=== PATIENT | female | born 1990 | race African-American/Black ===

== ENCOUNTER 2016-07-02 08:53 | Emergency (ER) | payer OTHER ==
--- NOTE | 2016-07-02 09:33 | ED ---
URI HPI - General Chief Complaint: Upper Respiratory Infection Stated Complaint: congestion Time Seen by Provider: 07/02/16 09:19 Source: patient, RN notes reviewed Mode of arrival: ambulatory Limitations: no limitations - History of Present Illness Initial Comments: 25-year-old female presents to the emergency department with a chief complaint of cough cold runny nose like symptoms. Patient states that she has had this for the past week or so. Patient states she has produced some yellow green- like sputum. Patient does admit to a history of ALLERGIES. Patient states she was concerned due to her continued symptoms so she thought that she should be evaluated. Patient denies any recent fever, chills, shortness of breath, chest pain, back pain, abdominal pain, nausea vomiting, numbness or tingling, dysuria or hematuria, constipation or diarrhea, headaches or visual changes, or any other current symptoms. - Related Data Previous Rx's Medication Instructions Recorded Cetirizine HCl [Zyrtec] 10 mg PO DAILY #30 tab 07/02/16 Allergies Allergy/AdvReac Type Severity Reaction Status Date / Time No Known Allergies Allergy Verified 07/02/16 09:15 Review of Systems ROS Statement: Those systems with pertinent positive or pertinent negative responses have been documented in the HPI. ROS Other: All systems not noted in ROS Statement are negative. Past Medical History Past Medical History: Asthma Additional Past Medical History / Comment(s): frequent UTI History of Any Multi-Drug Resistant Organisms: None Reported Additional Past Surgical History / Comment(s): breat reduction Past Psychological History: Anxiety Smoking Status: Former smoker Past Alcohol Use History: Occasional Past Drug Use History: None Reported General Exam - General Exam Comments Initial Comments: General exam: Alert, active, comfortable in no apparent distress Head: Normocephalic Eyes: Normal reaction of pupils, equal size, normal range of extraocular motion Ears: normal external ear canals Nose: clear with pink turbinates Throat: no erythema or exudates with normal sized tonsils Neck: no masses, no nuchal rigidity Chest: no chest wall deformity Lungs: equal air entry with no crackles or wheeze CVS: S1 and S2 normal with no audible mumurs, regular rhythm Spine: no scoliosis or deformity Skin: no rashes Neurological: No focal deficits, tone is normal in all 4 extremities Limitations: no limitations Course Vital Signs 07/02/16 07/02/16 09:02 10:48 Temperature 99.3 F 99 F Pulse Rate 62 57 L Respiratory 17 16 Rate Blood Pressure 108/62 115/61 O2 Sat by Pulse 99 99 Oximetry Medical Decision Making - Medical Decision Making 25-year-old female presents for cough cold like symptoms. At this time the x- ray shows no pneumonia. This time we did discuss x-ray results were discussed. Zyrtec due to the fact that her symptoms seem to be ALLERGY related. Discussed return parameters and follow-up. Patient states she understood all questions were answered. She will be discharged. - Lab Data Lab Results 07/02/16 Range/Units 09:10 Urine HCG, Qual Not Detected (Not Detectd) - Radiology Data Radiology results: report reviewed, image reviewed Disposition Clinical Impression: Cough, Allergic cough Disposition: HOME SELF-CARE Condition: Stable Instructions: Allergies (ED) Additional Instructions: Please use medication as discussed. Please follow up with family doctor if symptoms have not improved over the next two days. Please return to the emergency room if your symptoms increase or worsen or for any other concerns. Prescriptions: Cetirizine HCl [Zyrtec] 10 mg PO DAILY #30 tab Referrals: Catalina Haji MD [STAFF PHYSICIAN] - 1-2 days Time of Disposition: 11:00
[2016-07-02 10:49] VITALS: RESP 16; TEMP 99
--- NOTE | 2016-07-02 10:55 | XR ---
EXAMINATION TYPE: XR chest 2V DATE OF EXAM: 07/02/2016 10:32 AM COMPARISON: NONE HISTORY: Cough and congestion TECHNIQUE: Frontal and lateral views of the chest are obtained. FINDINGS: There is no focal air space opacity, pleural effusion, or pneumothorax seen. The cardiac silhouette size is within normal limits. There is a thoracic lumbar scoliosis. Indeterminate calcifi c densities in the right upper quadrant. The osseous structures are intact. IMPRESSION: No acute cardiopulmonary process. Additional findings above.
[2016-07-02 12:04] VITALS: BP 112/64; PULSE 67
== END 2016-07-02 12:16 | disposition home or self-care (01) ==
LOC: EC 08:53
DX: R05 Cough (principal); R09.89 Other specified symptoms and signs involving the circulatory and respiratory systems; Z87.891 Personal history of nicotine dependence
CPT/HCPCS: 71020; 81025; 99283

== ENCOUNTER 2017-04-02 08:46 | Emergency (ER) | payer OTHER ==
[2017-04-02 10:01] LABS: Basophils # (A) 0.1 k/uL (0-0.2); Basophils % (A) 1 %; Eosinophils # (A) 0.2 k/uL (0-0.7); Eosinophils % (A) 2 %; HCT 43.7 % (34.0-46.0); HGB 14.6 gm/dL (11.4-16.0); Lymphocytes # (A) 1.8 k/uL (1.0-4.8); Lymphocytes % (A) 29 %; MCH 30.6 pg (25.0-35.0); MCHC 33.4 g/dL (31.0-37.0); MCV 91.7 fL (80.0-100.0); Mean Platelet Volume 7.9; Monocytes # (A) 0.4 k/uL (0-1.0); Monocytes % (A) 6 %; Neutrophils # (A) 3.8 k/uL (1.3-7.7); Neutrophils % (A) 60 %; Platelet Count 276 k/uL (150-450); RBC 4.77 m/uL (3.80-5.40); RDW 12.3 % (11.5-15.5); WBC 6.3 k/uL (3.8-10.6)
[2017-04-02 10:09] LABS: ALT 18 U/L (9-52); AST 17 U/L (14-36); Albumin 4.4 g/dL (3.5-5.0); Alkaline Phosphatase 66 U/L (38-126); Amylase 111 U/L (30-110); Anion Gap 13 mmol/L; Blood Urea Nitrogen 9 mg/dL (7-17); Calcium 9.8 mg/dL (8.4-10.2); Carbon Dioxide 24 mmol/L (22-30); Chloride 107 mmol/L (98-107); Glucose 98 mg/dL (74-99); Lipase 139 U/L (23-300); Potassium 3.8 mmol/L (3.5-5.1); Sodium 144 mmol/L (137-145); Total Bilirubin 0.5 mg/dL (0.2-1.3); Total Protein 7.8 g/dL (6.3-8.2)
[2017-04-02] MEDS ORDERED: RX INFO: IV CONTRAST WAS GIVEN 1 EACH MISC MISCELLANE PRN (10:18)
--- NOTE | 2017-04-02 10:21 | ED ---
General Adult HPI - General Chief complaint: Abdominal Pain Stated complaint: abdominal pain Time Seen by Provider: 04/02/17 09:58 Source: patient, RN notes reviewed Mode of arrival: ambulatory Limitations: no limitations - History of Present Illness Initial comments: 26-year-old female presents to the emergency department with a chief complaint of right lower quadrant abdominal pain. Patient states that she's had this pain started about one week ago. Patient states that the pain is tender to touch. There is been no nausea no vomiting no fever or chills. Patient states no changes in vaginal discharge patient states that now concerned for STDs. Patient states no trauma or injury to the abdomen. Patient states that it just seems to be worsening so she thought that she should be seen. Patient denies any other symptoms at this time.Patient denies any recent fever, chills, shortness of breath, chest pain, back pain, nausea vomiting, numbness or tingling, dysuria or hematuria, constipation or diarrhea, headaches or visual changes, or any other current symptoms. - Related Data Home Medications Medication Instructions Recorded Confirmed Acetaminophen Tab [Tylenol Tab] 650 mg PO Q6H PRN 04/02/17 04/02/17 Albuterol Inhaler [Ventolin Hfa 1 - 2 puff INHALATION RT-QID PRN 04/02/17 Inhaler] Biotin 5 mg PO DAILY 04/02/17 04/02/17 Fluticasone Nasal [place] [Flonase 2 spr EA NOSTRIL DAILY PRN 04/02/17 04/02/17 Nasal [place]] Ibuprofen [Motrin Ib] 200 - 400 mg PO Q6H PRN 04/02/17 04/02/17 Naproxen Sodium [Aleve] 220 mg PO DAILY PRN 04/02/17 04/02/17 Previous Rx's Medication Instructions Recorded Ciprofloxacin HCl [Cipro] 500 mg PO Q12HR #14 tablet 04/02/17 Hydrocodone/Acetaminophen [[place] 1 each PO Q6HR PRN #20 tab 04/02/17 5-325] Ketorolac [Toradol] 10 mg PO Q6HR #20 tab 04/02/17 Ondansetron Odt [Zofran ODT] 4 mg PO Q8HR PRN #20 tab 04/02/17 Tamsulosin [Flomax] 0.4 mg PO DAILY #5 cap 04/02/17 Allergies Allergy/AdvReac Type Severity Reaction Status Date / Time banana Allergy Anaphylaxis Verified 04/02/17 09:43 blueberry Allergy Anaphylaxis Verified 04/02/17 09:43 kiwi Allergy Anaphylaxis Verified 04/02/17 09:43 onion Allergy Anaphylaxis Verified 04/02/17 09:43 peanut Allergy Anaphylaxis Verified 04/02/17 09:43 raspberry Allergy Anaphylaxis Verified 04/02/17 09:43 strawberry Allergy Anaphylaxis Verified 04/02/17 09:43 tomato Allergy Anaphylaxis Verified 04/02/17 09:43 FRUIT Allergy Anaphylaxis Uncoded 04/02/17 09:43 Review of Systems ROS Statement: Those systems with pertinent positive or pertinent negative responses have been documented in the HPI. ROS Other: All systems not noted in ROS Statement are negative. Past Medical History Past Medical History: Asthma Additional Past Medical History / Comment(s): frequent UTI History of Any Multi-Drug Resistant Organisms: None Reported Past Surgical History: Breast Surgery Additional Past Surgical History / Comment(s): breat reduction Past Psychological History: Anxiety Smoking Status: Former smoker Past Alcohol Use History: Occasional Past Drug Use History: None Reported General Exam - General Exam Comments Initial Comments: General: The patient is awake and alert, in no distress, and does not appear acutely ill. Eye: Pupils are equal, round and reactive to light, extra-ocular movements are intact; there is normal conjunctiva bilaterally. No signs of icterus. Ears, nose, mouth and throat: There are moist mucous membranes and no oral lesions. Neck: The neck is supple, there is no tenderness. Cardiovascular: There is a regular rate and rhythm. No murmur, rub or gallop is appreciated. Respiratory: Lungs are clear to auscultation, respirations are non-labored, breath sounds are equal. No wheezes, stridor, rales, or rhonchi. Gastrointestinal: Soft, non-distended, mild tenderness to palpation in the right lower quadrant of the abdomen without masses or organomegaly noted. There is no rebound or guarding present. No CVA tenderness. Bowel sounds are unremarkable. Back: There is no tenderness to palpation in the midline. There is no obvious deformity. No rashes noted. Musculoskeletal: Normal ROM, no tenderness, There is no pedal edema. There is no calf tenderness or swelling. Sensation intact. Pulses equal bilaterally 2+. Neurological: CN II-XII intact, There are no obvious motor or sensory deficits. Coordination appears grossly intact. Speech is normal. Skin: Skin is warm and dry and no rashes or lesions are noted. Psychiatric: Cooperative, appropriate mood & affect, normal judgment. Limitations: no limitations Course Vital Signs 04/02/17 09:11 Temperature 97.5 F L Pulse Rate 89 Respiratory 18 Rate Blood Pressure 133/81 O2 Sat by Pulse 100 Oximetry Medical Decision Making - Medical Decision Making 26-year-old female presents to the emergency department with a chief complaint of right-sided abdominal pain. At this time patient's CAT scan has been reviewed as well as blood work. This time the patient does appear to have a right ureteral calculus. At this time patient's kidney function is stable as well as white count. There is some bacteria in the urine we will treat for possible UTI as well. We did discuss that we'll put on antibiotics and pain medication for home. The patient is comfortable discharge. We did discuss close follow-up with urologist. We did discuss return parameters and all her questions. She stated that she understood and she is in agreement this plan. We discussed HIM results and the fact that there is a left ovarian cyst. We did discuss follow-up with her doctor for this as well. Patient stated that she understood and all questions have been answered. At this time the patient will be discharged. - Lab Data Result diagrams: 04/02/17 09:36 04/02/17 09:36 Lab Results 04/02/17 04/02/17 04/02/17 Range/Units 09:36 09:36 09:50 WBC 6.3 (3.8-10.6) k/uL RBC 4.77 (3.80-5.40) m/uL Hgb 14.6 (11.4-16.0) gm/dL Hct 43.7 (34.0-46.0) % MCV 91.7 (80.0-100.0) fL MCH 30.6 (25.0-35.0) pg MCHC 33.4 (31.0-37.0) g/dL RDW 12.3 (11.5-15.5) % Plt Count 276 (150-450) k/uL Neutrophils % 60 % Lymphocytes % 29 % Monocytes % 6 % Eosinophils % 2 % Basophils % 1 % Neutrophils # 3.8 (1.3-7.7) k/uL Lymphocytes # 1.8 (1.0-4.8) k/uL Monocytes # 0.4 (0-1.0) k/uL Eosinophils # 0.2 (0-0.7) k/uL Basophils # 0.1 (0-0.2) k/uL Sodium 144 (137-145) mmol/L Potassium 3.8 (3.5-5.1) mmol/L Chloride 107 (98-107) mmol/L Carbon Dioxide 24 (22-30) mmol/L Anion Gap 13 mmol/L BUN 9 (7-17) mg/dL Creatinine 0.80 (0.52-1.04) mg/dL Est GFR (MDRD) Af Amer >60 (>60 ml/min/1.73 sqM) Est GFR (MDRD) Non-Af >60 (>60 ml/min/1.73 sqM) Glucose 98 (74-99) mg/dL Calcium 9.8 (8.4-10.2) mg/dL Total Bilirubin 0.5 (0.2-1.3) mg/dL AST 17 (14-36) U/L ALT 18 (9-52) U/L Alkaline Phosphatase 66 (38-126) U/L Total Protein 7.8 (6.3-8.2) g/dL Albumin 4.4 (3.5-5.0) g/dL Amylase 111 H (30-110) U/L Lipase 139 (23-300) U/L Urine Color Urine Appearance (Clear) Urine pH (5.0-8.0) Ur Specific [place] (1.001-1.035) Urine Protein (Negative) Urine Glucose (UA) (Negative) Urine Ketones (Negative) Urine Blood (Negative) Urine Nitrite (Negative) Urine Bilirubin (Negative) Urine Urobilinogen (<2.0) mg/dL Ur Leukocyte Esterase (Negative) Urine RBC (0-5) /hpf Urine WBC (0-5) /hpf Ur Squamous Epith Cells (0-4) /hpf Urine Bacteria (None) /hpf Urine Mucus (None) /hpf Urine HCG, Qual Not Detected (Not Detectd) 04/02/17 Range/Units 09:50 WBC (3.8-10.6) k/uL RBC (3.80-5.40) m/uL Hgb (11.4-16.0) gm/dL Hct (34.0-46.0) % MCV (80.0-100.0) fL MCH (25.0-35.0) pg MCHC (31.0-37.0) g/dL RDW (11.5-15.5) % Plt Count (150-450) k/uL Neutrophils % % Lymphocytes % % Monocytes % % Eosinophils % % Basophils % % Neutrophils # (1.3-7.7) k/uL Lymphocytes # (1.0-4.8) k/uL Monocytes # (0-1.0) k/uL Eosinophils # (0-0.7) k/uL Basophils # (0-0.2) k/uL Sodium (137-145) mmol/L Potassium (3.5-5.1) mmol/L Chloride (98-107) mmol/L Carbon Dioxide (22-30) mmol/L Anion Gap mmol/L BUN (7-17) mg/dL Creatinine (0.52-1.04) mg/dL Est GFR (MDRD) Af Amer (>60 ml/min/1.73 sqM) Est GFR (MDRD) Non-Af (>60 ml/min/1.73 sqM) Glucose (74-99) mg/dL Calcium (8.4-10.2) mg/dL Total Bilirubin (0.2-1.3) mg/dL AST (14-36) U/L ALT (9-52) U/L Alkaline Phosphatase (38-126) U/L Total Protein (6.3-8.2) g/dL Albumin (3.5-5.0) g/dL Amylase (30-110) U/L Lipase (23-300) U/L Urine Color Light Red Urine Appearance Cloudy H (Clear) Urine pH 5.5 (5.0-8.0) Ur Specific [place] 1.014 (1.001-1.035) Urine Protein Trace H (Negative) Urine Glucose (UA) Negative (Negative) Urine Ketones Negative (Negative) Urine Blood Large H (Negative) Urine Nitrite Negative (Negative) Urine Bilirubin Negative (Negative) Urine Urobilinogen <2.0 (<2.0) mg/dL Ur Leukocyte Esterase Large H (Negative) Urine RBC >182 H (0-5) /hpf Urine WBC 21 H (0-5) /hpf Ur Squamous Epith Cells 15 H (0-4) /hpf Urine Bacteria Occasional H (None) /hpf Urine Mucus Few H (None) /hpf Urine HCG, Qual (Not Detectd) - Radiology Data Radiology results: report reviewed, image reviewed Disposition Clinical Impression: Right ureteral calculus, UTI (urinary tract infection), Left ovarian cyst Disposition: HOME SELF-CARE Condition: Stable Instructions: Ureteral Stones (ED), Ovarian Cyst (ED) Additional Instructions: Please use medication as discussed. Please follow up with family doctor if symptoms have not improved over the next two days. Please return to the emergency room if your symptoms increase or worsen or for any other concerns. Prescriptions: Ciprofloxacin HCl [Cipro] 500 mg PO Q12HR #14 tablet Hydrocodone/Acetaminophen [[place] 5-325] 1 each PO Q6HR PRN #20 tab PRN Reason: Pain Ketorolac [Toradol] 10 mg PO Q6HR #20 tab Ondansetron Odt [Zofran ODT] 4 mg PO Q8HR PRN #20 tab PRN Reason: Nausea Tamsulosin [Flomax] 0.4 mg PO DAILY #5 cap Referrals: Shereen Pace DO [Primary Care Provider] - 1-2 days Georges Bernardo MD [STAFF PHYSICIAN] - 1-2 days Time of Disposition: 11:44
[2017-04-02 10:40] LABS: Appearance,Urine Cloudy (Clear); Bacteria,Urine Occasional /hpf; Bilirubin,Urine Negative (Negative); Blood,Urine Large (Negative); Color,Urine Light Red; Glucose,Urine (UA) Negative (Negative); Ketones,Urine Negative (Negative); Leukocyte Esterase,Urine Large (Negative); Mucus,Urine Few /hpf; Nitrite,Urine Negative (Negative); PH, Urine 5.5 (5.0-8.0); Protein,Urine Trace (Negative); RBC,Urine >182 /hpf (0-5); Specific Gravity,Urine 1.014 (1.001-1.035); Squamous Epithelial Cell,Urine 15 /hpf (0-4); Urobilinogen,Urine <2.0 mg/dL (<2.0); WBC,Urine 21 /hpf (0-5)
--- NOTE | 2017-04-02 11:09 | CT ---
EXAMINATION TYPE: CT abdomen pelvis w con DATE OF EXAM: 04/02/2017 COMPARISON: NONE INDICATION: RLQ pain DLP: 319.5 mGycm, Automated exposure control for dose reduction was used. CONTRAST: 100 mL of Omnipaque 300. Study performed without Oral Contrast TECHNIQUE: Axial images were obtained from above the diaphragm to the pubic rami in the axial plane a t 5 mm thick sections. Reconstructed images are reviewed on the computer in the coronal plane. FINDINGS: Limited CT sections are obtained the lung bases. The lung bases are clear. CT ABDOMEN: Liver: There are punctate hypodensities scattered within the upper right liver may be tiny hepatic cy st, too small to classify. Spleen: Normal Pancreas: Normal Adrenal glands: The adrenal glands are normal. Gallbladder: Normal Kidneys: No masses are evident. There is a moderate right hydronephrosis. Hydroureter is present to m ild marked degree extending to the right hemipelvis. There is a 0.5 cm calcification within the dista l ureter. No cysts are present. There is a 0.2-0.4 cm calcification in the upper right kidney. 2.2 c m calcifications are within the posterior inferior right kidney. No obstruction from these calcificat ions is evident. Is evident. There is a 0.3 cm calcification upper outer left kidney. No obstruction. Aorta: Vascular calcification is within the aorta. Inferior vena cava: Normal. CT PELVIS: Loops of bowel within the abdomen and pelvis are normal. There are loops of bowel which are incom pletely distended or lack oral contrast limiting their evaluation. Some diverticulosis sigmoid colon. Appendix: Normal as visualized. Urinary bladder: Normal. Genitourinary structures: There is a 1.6 cm left ovarian cyst. Uterus appears unremarkable. Moderate free fluid within the pelvis. Osseous structures: No suspicious lytic or sclerotic lesions. Scoliosis is present. IMPRESSIONS: 1. A 0.5 cm distal right hemipelvis ureteral stone with moderate hydronephrosis and hydroureter. 2. Additional bilateral nonobstructing renal stones. 3. 1.6 cm transverse dimension left ovarian cyst with moderate free fluid within the pelvis.
[2017-04-02] MEDS ORDERED: ONDANSETRON 4 MG/2 ML VIAL IVP STA (11:27)
[2017-04-02] MEDS ORDERED: cefTRIAXone IN SWFI 1,000 MG/10 ML SYRINGE IVP STA (11:27)
[2017-04-02] MEDS ORDERED: KETOROLAC 30 MG/ML 1 ML VIAL IVP STA (11:27)
[2017-04-02] MEDS ORDERED: SODIUM CHLORIDE 0.9% 1,000 ML IV STA (11:39)
[2017-04-02 11:59] VITALS: BP 118/67; PULSE 78; RESP 19; TEMP 99.4
[2017-04-03 12:00] LABS: Chlamydia trachomatis rRNA Not detected (Not detected); Neisseria gonorrhoeae rRNA Not detected (Not detected)
== END 2017-04-02 13:03 | disposition home or self-care (01) ==
LOC: EC 08:46
DX: N20.1 Calculus of ureter (principal); N39.0 Urinary tract infection, site not specified; N83.202 Unspecified ovarian cyst, left side; N89.8 Other specified noninflammatory disorders of vagina; Z87.891 Personal history of nicotine dependence; Z79.899 Other long term (current) drug therapy; Z91.010 Allergy to peanuts; Z91.018 Allergy to other foods
CPT/HCPCS: 36415; 80053; 87591; 87491; 82150; 83690; 85025; 81001; 81025; 74177; 99284; 96374; 96375 ×2; 96361; J2405; J0696; J1885; Q9967

== ENCOUNTER → 2017-05-15 | Outpatient (CLI) | payer OTHER ==
--- NOTE | 2017-05-15 13:50 | XR ---
EXAMINATION TYPE: XR KUB DATE OF EXAM: 05/15/2017 COMPARISON: NONE HISTORY: Flank pain TECHNIQUE: One view abdominal series FINDINGS: The osseous structures are intact. The bowel gas pattern is nonspecific. Retained fecal debris does obscure portions of the renal outlines. Calcifications in the pelvis are nonspecific but likely vascu lar. Curvature the spine noted. IMPRESSION: 1. Nonspecific abdomen.
--- NOTE | 2017-05-15 13:56 | US ---
EXAMINATION TYPE: US kidneys/renal and bladder DATE OF EXAM: 05/15/2017 COMPARISON: CT 04/02/2017 CLINICAL HISTORY: N20.0 Calculus Kidney, N20.1 Calculus Ureters. History of hydronephrosis EXAM MEASUREMENTS: Right Kidney: 9.1 x 4.1 x 4.5 cm Left Kidney: 9.0 x 4.1 x 3.7 cm Right Kidney: No hydronephrosis or masses seen. No echogenic foci with posterior shadowing to sugge st renal stones are evident. Left Kidney: No hydronephrosis or masses seen. No echogenic foci with posterior shadowing to suggest renal stones are evident. Bladder: wnl, sonolucent. Posterior wall is unremarkable. Bilateral Jets seen: Yes IMPRESSION: 1. Normal retroperitoneal ultrasound, hydronephrosis is not identified
== END | disposition home or self-care (01) ==
LOC: RADUSWWP 13:11
PROVIDERS: ATTEND Urology
DX: N13.2 Hydronephrosis with renal and ureteral calculous obstruction (principal)
CPT/HCPCS: 74018; 76770

== ENCOUNTER → 2017-06-11 | Outpatient (CLI) | payer OTHER ==
--- NOTE | 2017-06-11 16:33 | CT ---
EXAMINATION TYPE: CT abdomen pelvis wo con DATE OF EXAM: 06/11/2017 COMPARISON: 04/02/2017 HISTORY: Bilateral flank pain. CT DLP: 207.2 mGycm Automated exposure control for dose reduction was used. TECHNIQUE: Helical acquisition of images was performed from the lung bases through the pelvis. FINDINGS: LUNG BASES: No significant abnormality is appreciated. LIVER/GB: No significant abnormality is appreciated. PANCREAS: No significant abnormality is seen. SPLEEN: No significant abnormality is seen. ADRENALS: No significant abnormality is seen. KIDNEYS: Right kidney: There are 7 calcifications scattered throughout the right kidney with no hydronephrosis . Left kidney: There are 6 calcifications within the left kidney with no evidence of hydronephrosis. All calcifications measure 5 mm or left. No hydronephrosis bilaterally.. URINARY BLADDER: No significant abnormality is seen. ADENOPATHY: None visualized. OSSEOUS STRUCTURES: No significant abnormality is seen. Curvature the spine noted. BOWEL: Nonspecific bowel gas pattern. Stomach appears to be distended with particulate matter. Corre late for gastroparesis or gastric outlet obstruction. OTHER: Aorta of normal caliber. IMPRESSION: 1. Multiple bilateral less than 5 mm renal calculi with no evidence of hydronephrosis. 2. Gastric distention as discussed above correlate for gastroparesis or less likely obstruction. 3. The uterus is prominent in size could be correlated with ultrasound.
== END | disposition home or self-care (01) ==
LOC: RADCTMAIN 15:52
PROVIDERS: ATTEND Family Medicine
DX: N20.0 Calculus of kidney (principal); R14.0 Abdominal distension (gaseous)
CPT/HCPCS: 74176

== ENCOUNTER → 2017-08-05 | Outpatient (CLI) | payer OTHER ==
[~2017-08-05] MED LIST: diphenhydrAMINE 50 MG CAP PO STA
[2017-08-05 12:43] VITALS: RESP 16
--- NOTE | 2017-08-05 12:48 | CT ---
EXAMINATION TYPE: CT angio chest DATE OF EXAM: 08/05/2017 COMPARISON: NONE HISTORY: Chest pain new onset with oral contraceptives CT DLP: 360 mGycm CONTRAST: Isovue 370/100. Contrast CTA of the thoracic aorta was performed from the lung apex through the upper abdomen. 3D re construction imaging obtained at a separate workstation. CT Chest: THORACIC AORTA: No evidence for thoracic aortic aneurysm. Mild atheromatous changes seen. There is n o evidence for dissection or periaortic collection. LUNGS: The lungs are clear and free of infiltrate or atelectasis. No pulmonary nodule or mass is det ected. No pleural effusion or CT evidence of interstitial lung disease. MEDIASTINUM: No evidence for pulmonary embolism. No evidence for mediastinal hematoma. The heart is not enlarged. No evidence for mediastinal mass or adenopathy. HILAR STRUCTURES: No evidence for mass. No hilar adenopathy is appreciated. OTHER: No significant abnormality. IMPRESSION- No significant abnormality seen.
[2017-08-05 13:13] VITALS: BP 119/67; PULSE 68
== END | disposition home or self-care (01) ==
LOC: RADCTMAIN 11:06
PROVIDERS: ATTEND Family Medicine
DX: R07.9 Chest pain, unspecified (principal)
CPT/HCPCS: 71275; Q9967

== ENCOUNTER → 2017-10-15 | Outpatient (CLI) | payer OTHER ==
--- NOTE | 2017-10-15 13:47 | CT ---
EXAMINATION TYPE: CT abdomen w con DATE OF EXAM: 10/15/2017 COMPARISON: 06/11/2017 HISTORY: 27-year-old female elevated liver enzymes TECHNIQUE: Contiguous axial scanning of the abdomen following administration of 100 ml Isovue 300 IV contrast. Delayed images through the kidneys and coronal/sagittal reconstructions performed. CT DLP: 217.6 mGycm Automated exposure control for dose reduction was used. FINDINGS: Heart normal size without pericardial effusion. Lung bases clear without pleural effusion. Single subcentimeter hypodensity posterior right hepatic lobe, axial image 12, too small for accurate CT characterization, likely a tiny cyst. The liver is normal size. Portal venous system is patent. N o biliary ductal dilatation. Gallbladder, adrenal glands, spleen, and pancreas appear within normal limits. Bilateral nonobstructive nephrolithiasis redemonstrated, approximately 3 calculi on the right measuri ng up to 3 mm and a punctate 2 mm calculus on the left. Symmetric uptake and excretion of contrast fr om both kidneys. No dilated small bowel, free fluid, or free air. Scattered borderline and mildly enlarged mesenteric lymph nodes measuring up to 9 mm, for example, refer to coronal image 22. No significant stool burden. No pericolonic inflammatory change. The pelvis is not imaged. Bones: No osseous destructive process. IMPRESSION: 1. NO BILIARY DUCTAL DILATATION. A TINY SUBCENTIMETER HYPODENSITY IN THE RIGHT LIVER LOBE LIKELY REPR ESENTS A TINY CYST. OTHERWISE, NO SPECIFIC ABNORMALITY OF THE LIVER. 2. BILATERAL NONOBSTRUCTIVE NEPHROLITHIASIS MEASURING UP TO 3 MM. 3. NUMEROUS BORDERLINE TO MILDLY ENLARGED MESENTERIC LYMPH NODES MEASURING UP TO 9 MM, LIKELY REACTIV E/POST INFLAMMATORY, AND STABLE FROM 06/11/2017. 4. PELVIS NOT IMAGED.
== END | disposition home or self-care (01) ==
LOC: RADCTMAIN 09:01
PROVIDERS: ATTEND Family Medicine
DX: N20.0 Calculus of kidney (principal); R59.0 Localized enlarged lymph nodes; R74.8 Abnormal levels of other serum enzymes
CPT/HCPCS: 74160; 36415; Q9967

== ENCOUNTER 2017-10-26 10:19 | Day surgery (SDC) | payer OTHER ==
[2017-10-21 16:04] VITALS: BMI 20.5
[~2017-10-26 10:19] MED LIST changes: +LACTATED RINGERS 1,000 ML IV SCH; -diphenhydrAMINE 50 MG CAP PO STA
[2017-10-26] MEDS ORDERED: LIDOCAINE 1% 20 ML VIAL (10MG/ML) FOR IV START INTRADERMA ONE (11:13)
[2017-10-26 11:15] VITALS: TEMP 98.2
[2017-10-26] MEDS ORDERED: PROPOFOL 10 MG/ML 20 ML VIAL IV ONE (12:03)
--- NOTE | 2017-10-26 12:21 | P.GSHP ---
History of Present Illness H&P Date: 10/26/17 Chief Complaint: GI bleed, epigastric pain This is a 19-year-old female presents today for EGD and colonoscopy. She's had issues with GI bleed and epigastric pain. Past Medical History Past Medical History: Asthma, Chest Pain / Angina, GERD/Reflux, GI Bleed, Renal Disease, Thyroid Disorder Additional Past Medical History / Comment(s): frequent UTI, stomach pain, hx kidney stones, cyst on liver History of Any Multi-Drug Resistant Organisms: None Reported Past Surgical History: Breast Surgery Additional Past Surgical History / Comment(s): breast reduction Past Anesthesia/Blood Transfusion Reactions: No Reported Reaction Additional Past Anesthesia/Blood Transfusion Reaction / Comment(s): "my mom took her a while to wake up" Smoking Status: Never smoker - Past Family History Mother Family Medical History: Cancer Additional Family Medical History / Comment(s): breast Medications and Allergies Home Medications Medication Instructions Recorded Confirmed Type Acetaminophen Tab [Tylenol Tab] 650 mg PO Q6H PRN 04/02/17 10/26/17 History Albuterol Inhaler [Ventolin Hfa 1 - 2 puff INHALATION RT-QID PRN 04/02/17 History Inhaler] Fluticasone Nasal [place] [Flonase 2 spr EA NOSTRIL DAILY PRN 04/02/17 10/26/17 History Nasal [place]] Ibuprofen [Motrin Ib] 200 - 400 mg PO Q6H PRN 04/02/17 10/26/17 History Omeprazole 20 mg PO DAILY 10/21/17 10/26/17 History diphenhydrAMINE HCL [Benadryl] 25 mg PO DAILY PRN 10/21/17 10/26/17 History Allergies Allergy/AdvReac Type Severity Reaction Status Date / Time banana Allergy Anaphylaxis Verified 10/26/17 11:03 blueberry Allergy Anaphylaxis Verified 10/26/17 11:03 Iodinated Contrast- Oral and Allergy Itching Verified 10/26/17 11:03 IV Dye kiwi Allergy Anaphylaxis Verified 10/26/17 11:03 latex Allergy Rash/Hives Verified 10/26/17 11:03 onion Allergy Anaphylaxis Verified 10/26/17 11:03 peanut Allergy Anaphylaxis Verified 10/26/17 11:03 raspberry Allergy Anaphylaxis Verified 10/26/17 11:03 strawberry Allergy Anaphylaxis Verified 10/26/17 11:03 tomato Allergy Anaphylaxis Verified 10/26/17 11:03 FRUIT Allergy Anaphylaxis Uncoded 10/26/17 11:03 Surgical - Exam Vital Signs Temp Pulse Resp BP Pulse Ox 98.2 F 88 16 105/63 100 10/26/17 11:14 10/26/17 11:14 10/26/17 11:14 10/26/17 11:14 10/26/17 11:14 - General well developed, well nourished, no distress - Eyes PERRL - ENT normal pinna, normal nares - Neck no masses - Respiratory normal expansion - Cardiovascular Rhythm: regular - Abdomen Abdomen: soft, non tender Assessment and Plan Assessment: GI bleed, epigastric pain. We'll perform EGD and colonoscopy.
--- NOTE | 2017-10-26 12:23 | P.OP ---
Date of Procedure: 10/26/17 Preoperative Diagnosis: GI bleed Epigastric pain Postoperative Diagnosis: Antral gastritis Right colon polyp Procedure(s) Performed: EGD Colonoscopy Anesthesia: MAC Surgeon: Familia Egan Pathology: other (Right colon polyp) Condition: stable Disposition: PACU Description of Procedure: The patient's placed on the endoscopy table in the lateral position. She received IV sedation. The gastric was placed oropharynx passed in the esophagus into stomach. Scope was then placed through the pylorus. The first and second portion of the duodenum appeared normal. Scope was then brought back and the antrum and this was mildly inflamed. Biopsies was performed. The scope was then retroflexed and the remainder of the stomach appeared normal. There is no significant hiatal hernia. The GE junction was at 40 cm Sada the distal esophagus appeared normal. The proximal esophagus appeared normal. Scope was withdrawn for patient. Next digital rectal exam was performed which revealed no ebonized. The flexible colonoscope was then placed patient anus and passed throughout the entire colon. The ileocecal valve was visualized cecum appeared normal. In the right colon there is small polyp seen this removed forcep. The remainder the ascending colon, transverse colon and descending colon appeared normal. The scope was brought back and sigmoid colon and this was normal. The scope was then withdrawn to the rectum and this was normal. Scope was withdrawn for patient.
[2017-10-26 14:39] VITALS: RESP 18
[2017-10-26 14:43] VITALS: BP 100/94; PULSE 85
--- NOTE | 2017-10-29 05:04 | CDI ---
Date: 10/29/17 CDS/Deployment Engineer Name: Dodie Beltran Phone: If any questions, call Vandana Perez Pin Setter at [phone] Patient Name: Mony Ji Admit Date: 10/26/17 Discharge Date: 10/26/17 ATTENTION: The [facility] Coding Staff appreciate your assistance in clarifying documentation. Please respond to the clarification below the line at the bottom and electronically sign. The [facility] Coding staff will review the response and follow-up if needed. Please note: Queries are made part of the Legal Health Record. If you have any questions, please contact the Pin Setter. Dear Bran Palmer provide clarification as to if the GI bleed is secondary to one of the conditions found (Gastritis, Polyp) and the method used to removed the colon polyp. Please clarify if the polyp was removed by hot or cold biopsy forceps. Thank you for your kind consideration. The polyp was removed with the cold forcep. I'm unable to determine source of GI bleed because there was no evidence of bleed on his scope MTDD
== END 2017-10-26 13:30 | disposition home or self-care (01) ==
LOC: ORWHC2ENDO 10:19
PROVIDERS: ATTEND Surgery
DX: K63.5 Polyp of colon (principal); K92.2 Gastrointestinal hemorrhage, unspecified; J45.909 Unspecified asthma, uncomplicated; K21.9 Gastro-esophageal reflux disease without esophagitis; N28.9 Disorder of kidney and ureter, unspecified; E07.9 Disorder of thyroid, unspecified; I25.10 Atherosclerotic heart disease of native coronary artery without angina pectoris; F41.9 Anxiety disorder, unspecified; Z87.442 Personal history of urinary calculi; Z79.899 Other long term (current) drug therapy; Z91.041 Radiographic dye allergy status; Z91.040 Latex allergy status; Z91.018 Allergy to other foods; Z91.010 Allergy to peanuts
CPT/HCPCS: 81025; 88305; 45380; 43239; J2704

== ENCOUNTER → 2017-11-19 | Outpatient (CLI) | payer OTHER ==
--- NOTE | 2017-11-19 11:19 | US ---
EXAMINATION TYPE: US transvaginal DATE OF EXAM: 11/19/2017 COMPARISON: CT abdomen and pelvis 06/11/2017 CLINICAL HISTORY: Z87.42 HX OF OVARIAN CYST. TECHNIQUE: Transvaginal (TV). Date of LMP: just ended EXAM MEASUREMENTS: Uterus: 9.6 x 4.6 x 5.7 cm Endometrial Stripe: 0.4 cm Right Ovary: 2.4 x 1.8 x 2.1 cm Left Ovary: 3.0 x 1.9 x 2.9 cm 1. Uterus: Anteverted Parenchymal change at fundus measuring 1.6 x 1.1 cm, indicative of probable fibroid 2. Endometrium: wnl 3. Right Ovary: wnl 4. Left Ovary: multiple anechoic cysts, most likely follicular 5. Bilateral Adnexa: wnl 6. Posterior cul-de-sac: free fluid Tiny amount of free fluid is seen on image 6 in pelvic cul-de-sac. Endometrial stripe is felt within normal limits. Uterus is slightly prominent with perhaps 1.6 cm subserosal fibroid near fundus on abdirashid ge 15. Both ovaries are seen with scattered peripheral follicles. No suspicious adnexal lesions are noted. IMPRESSION: Possible 1.5 cm subserosal fibroid. No suspicious ovarian solid or cystic masses identifi ed.
== END | disposition home or self-care (01) ==
LOC: RADUSWWP 08:12
PROVIDERS: ATTEND Obstetrics & Gynecology
DX: Z09 Encounter for follow-up examination after completed treatment for conditions other than malignant neoplasm (principal); Z87.42 Personal history of other diseases of the female genital tract
CPT/HCPCS: 76830

== ENCOUNTER → 2017-12-16 | Outpatient (CLI) | payer OTHER ==
--- NOTE | 2017-12-16 08:50 | US ---
EXAMINATION TYPE: US kidneys/renal and bladder DATE OF EXAM: 12/16/2017 COMPARISON: CT & US 2018 CLINICAL HISTORY: N20.0 calculus of kidney. History of kidney stones, intermittent bilateral flank an d back pain EXAM MEASUREMENTS: Right Kidney: 8.5 x 4.1 x 4.9 cm Left Kidney: 8.9 x 5.3 x 4.9 cm Right Kidney: no hydronephrosis, 0.4cm echogenic focus with minimal posterior shadowing seen mid/supe rior pole Left Kidney: no hydronephrosis, 0.3cm echogenic focus without posterior shadowing seen superior pole Bladder: wnl Bilateral Jets seen: yes There is no evidence for hydronephrosis at this point in time. No masses are identified. The urinar y bladder is anechoic. Bilateral ureteral jets are seen. IMPRESSION: Nonobstructing nephrolithiasis.
--- NOTE | 2017-12-16 09:02 | XR ---
EXAMINATION TYPE: XR KUB DATE OF EXAM: 12/16/2017 COMPARISON: 05/15/2017 HISTORY: Bilateral renal stones TECHNIQUE: One view abdominal series FINDINGS: The osseous structures are intact. Curvature the spine noted. The bowel gas pattern is nonspecific. Right kidney: There are 7 calcifications overlying the right kidney all measuring less than 5 mm the largest in the upper pole measuring 4 mm. Left kidney: Limited by overlying bowel content. Suspect there are a few less than 5 mm left renal ca lculi as reported by previous CT scan. Pelvis: There are numerous stable appearing calcifications within the pelvis. IMPRESSION: 1. Stable bilateral nephrolithiasis.
== END | disposition home or self-care (01) ==
LOC: RADUSWWP 08:07
PROVIDERS: ATTEND Urology
DX: N20.0 Calculus of kidney (principal)
CPT/HCPCS: 74018; 76770

== ENCOUNTER → 2018-03-15 | Outpatient (CLI) | payer OTHER ==
[2018-03-15 22:33] LABS: Magnesium 1.8 mg/dL (1.5-2.4); Phosphorus 3.5 mg/dL (2.4-5.1); Potassium 4.1 mmol/L (3.5-5.5); Uric Acid 3.1 mg/dL (2.9-7.7)
== END | disposition home or self-care (01) ==
LOC: LABWHC1 11:51
PROVIDERS: ATTEND Urology
DX: N20.0 Calculus of kidney (principal)
CPT/HCPCS: 36415; 80048; 83735; 83970; 84100; 84550

== ENCOUNTER → 2019-02-24 | Outpatient (CLI) | payer OTHER ==
--- NOTE | 2019-02-24 12:32 | CONS ---
CONSULTATION DATE OF SERVICE: 02/24/2019 This is a 28-year-old lady had been evaluated in the sleep center for possible obstructive sleep apnea-hypopnea syndrome. HISTORY OF PRESENT ILLNESS/SLEEP-WAKE EVALUATION: Presently, the patient does not work and her sleep schedule is irregular. She goes to bed from 10 p.m. to 5 a.m. usually after midnight and subsequently after that she sleeps and wakes up in different time. She snores. She awakenings from sleep around 3 times with episodes of gasping for air, dry mouth, panic attacks. She may feel discomfort in her hip area, which is decreasing during the movements, possibly restless leg symptoms. No history of hypnagogic hallucinations, sleep paralysis or cataplexy. During the day, patient feels sleepy. [place] Sleepiness Scale significantly increased to 17. She may take one nap a day. Usually does not feel refreshed after a nap. No vivid dreams during naps. Sometimes during the night, patient feel numbness in her face and neck. PAST MEDICAL HISTORY: Positive for asthma, allergies, episodes of headaches, painful menstrual periods, increasing functional thyroid. PAST SURGICAL HISTORY: Breast reduction. SOCIAL HISTORY: Negative for smoking. Alcohol consumption occasional. MEDICATIONS: Ibuprofen, Claritin, Benadryl, Ventolin, albuterol inhaler, B12 drops . REVIEW OF SYSTEMS: Awakenings from sleep, episodes of headaches, episodes of pain during menstrual periods. PHYSICAL EXAMINATION: During physical exam, a 28-year-old lady without distress. VITAL SIGNS: BP 112/77, HR 78, RR 16, height 5 feet 3-1/2 inches, weight 132, body mass index 23, temperature 98.0, oxygen saturation at room air 97%. HEENT: PERRLA, EOMI. Oropharynx extremely low position of soft palate. Mallampati 4. Neck is 13-1/4 inches in circumference. . NECK: Thyroid slightly palpable. LUNGS: Clear to percussion and to auscultation. Good air exchange. No wheezing or rhonchi. HEART: S1, S2 regular. No murmurs, gallops, or rubs. ABDOMEN: Soft and nontender. Bowel sounds are present. No organomegaly appreciated. EXTREMITIES: No clubbing or cyanosis. CALL CENTER DIRECTOR: Awake, alert, and oriented X3. Cranial nerves 2 to 7 intact. There is no fasciculation or atrophy. noted. No focal deficits observed. IMPRESSION: 1. Snoring, awakenings from sleep with gasping for air, extremely low position of soft palate, Mallampati 4, excessive daytime sleepiness with very high [place] Sleepiness Scale of 17, possible obstructive sleep apnea-hypopnea syndrome. 2. Irregular sleep schedule. 3. Possibly restless leg symptoms. 4. History of asthma. 5. Allergies. 6. Episodes of headaches. 7. Painful menstrual periods. 8. Slightly palpable ? thyroid with history of increasing thyroid hormones, possibly thyroiditis. 9. Status post breast reduction surgery. PLAN: 1. Polysomnography for evaluation of patient's breathing during sleep. 2. CPAP/BiPAP titration if sleep study confirms obstructive sleep apnea-hypopnea syndrome. 3. Preferable position during sleep on the side. 4. No driving if patient feels any sleepiness. 5. I will see patient for follow up visit to explain results of testing and following plan. Thank you very much for referring this patient for consultation. Sincerely, Donato Hernandez MD, PhD, FAASM Diplomat of [place] [employer] [place] [employer] [facility] [place] MMODL / IJN: [id number] /
== END | disposition home or self-care (01) ==
LOC: SLEEP 10:59
PROVIDERS: ATTEND Internal Medicine
DX: G47.39 Other sleep apnea (principal); T78.40XA Allergy, unspecified, initial encounter; N94.6 Dysmenorrhea, unspecified; Z87.09 Personal history of other diseases of the respiratory system; Z98.890 Other specified postprocedural states; Z79.1 Long term (current) use of non-steroidal anti-inflammatories (NSAID); Z79.899 Other long term (current) drug therapy
CPT/HCPCS: 99211

== ENCOUNTER 2021-11-09 13:53 | Emergency (ER) | payer OTHER ==
[2021-11-09 13:57] VITALS: BP 119/80; PULSE 85; RESP 20; TEMP 98.5
[2021-11-09] MEDS ORDERED: IBUPROFEN 800 MG TAB PO STA (14:24)
--- NOTE | 2021-11-09 14:28 | ED ---
ENT HPI - General Chief complaint: Dental/Oral Stated complaint: dental pain, headache Time Seen by Provider: 11/09/21 14:02 Source: patient Mode of arrival: ambulatory Limitations: no limitations - History of Present Illness Initial comments: Patient is a 31-year-old female who presents with dental pain. Patient states he and started one month ago in her upper right teeth. Pain is intermittent and usually gets better with salt water gargles however patient states the pain did not get better today. She denies fever, chills, gum and cheek swelling. Patient does not follow with a dentist. - Related Data Home Medications Medication Instructions Recorded Confirmed Acetaminophen Tab [Tylenol Tab] 650 mg PO Q6H PRN 04/02/17 10/26/17 Albuterol Inhaler [Ventolin Hfa 1 - 2 puff INHALATION RT-QID PRN 04/02/17 10/26/17 Inhaler] Fluticasone Nasal [place] [Flonase 2 spr EA NOSTRIL DAILY PRN 04/02/17 10/26/17 Nasal [place]] Ibuprofen [Motrin Ib] 200 - 400 mg PO Q6H PRN 04/02/17 10/26/17 Omeprazole 20 mg PO DAILY 10/21/17 10/26/17 diphenhydrAMINE HCL [Benadryl] 25 mg PO DAILY PRN 10/21/17 10/26/17 Previous Rx's Medication Instructions Recorded Amoxic-Pot Clav 875-125Mg 1 tab PO Q12HR 7 Days #14 tab 11/09/21 [Augmentin 875-125] Ketorolac [Toradol] 10 mg PO Q6HR PRN #20 tab 11/09/21 Allergies Allergy/AdvReac Type Severity Reaction Status Date / Time banana Allergy Anaphylaxis Verified 11/09/21 13:56 blueberry Allergy Anaphylaxis Verified 11/09/21 13:56 Iodinated Contrast Media Allergy Itching Verified 11/09/21 13:56 [Iodinated Contrast- Oral and IV Dye] kiwi Allergy Anaphylaxis Verified 11/09/21 13:56 latex Allergy Rash/Hives Verified 11/09/21 13:56 onion Allergy Anaphylaxis Verified 11/09/21 13:56 peanut Allergy Anaphylaxis Verified 11/09/21 13:56 raspberry Allergy Anaphylaxis Verified 11/09/21 13:56 strawberry Allergy Anaphylaxis Verified 11/09/21 13:56 tomato Allergy Anaphylaxis Verified 11/09/21 13:56 FRUIT Allergy Anaphylaxis Uncoded 11/09/21 13:56 Review of Systems ROS Statement: Those systems with pertinent positive or pertinent negative responses have been documented in the HPI. ROS Other: All systems not noted in ROS Statement are negative. Past Medical History Past Medical History: Asthma Additional Past Medical History / Comment(s): frequent UTI History of Any Multi-Drug Resistant Organisms: None Reported Past Surgical History: Breast Surgery Additional Past Surgical History / Comment(s): breat reduction Past Anesthesia/Blood Transfusion Reactions: No Reported Reaction Additional Past Anesthesia/Blood Transfusion Reaction / Comment(s): "my mom took her a while to wake up" Past Psychological History: Anxiety Smoking Status: Never smoker Past Alcohol Use History: Occasional Past Drug Use History: None Reported - Past Family History Mother Family Medical History: Cancer Additional Family Medical History / Comment(s): breast General Exam Limitations: no limitations General appearance: alert, in no apparent distress Eye exam: Present: normal appearance, PERRL, EOMI. Absent: scleral icterus, conjunctival injection, periorbital swelling ENT exam: Present: normal oropharynx (upper right molar chipped without evidence of infeciton ) Respiratory exam: Present: normal lung sounds bilaterally. Absent: respiratory distress, wheezes, rales, rhonchi, stridor Cardiovascular Exam: Present: regular rate, normal rhythm, normal heart sounds. Absent: systolic murmur, diastolic murmur, rubs, gallop, clicks Neurological exam: Present: alert, oriented X3, CN II-XII intact Psychiatric exam: Present: normal affect, normal mood Skin exam: Present: warm, dry, intact, normal color. Absent: rash Course Vital Signs 11/09/21 13:54 Temperature 98.5 F Pulse Rate 85 Respiratory 20 Rate Blood Pressure 119/80 O2 Sat by Pulse 98 Oximetry Medical Decision Making - Medical Decision Making This is a 31-year-old female who presents with tooth pain. There is no evidence of infection however with chipped tooth I will treat empirically for early infection. Patient encouraged to follow-up with denist. Dr. Meneses is my attending . Disposition Clinical Impression: Toothache Disposition: HOME SELF-CARE Condition: Good Instructions (If sedation given, give patient instructions): Toothache (ED) Additional Instructions: Take medication as directed. It is a very important to follow up with a dentist. Return to the emergency department if you experience new, concerning, or worsening symptoms. Prescriptions: Amoxic-Pot Clav 875-125Mg [Augmentin 875-125] 1 tab PO Q12HR 7 Days #14 tab Ketorolac [Toradol] 10 mg PO Q6HR PRN #20 tab PRN Reason: Pain Is patient prescribed a controlled substance at d/c from ED?: No Referrals: Jair Art MD [Primary Care Provider] - 1-2 days Time of Disposition: 14:28
== END 2021-11-09 14:40 | disposition home or self-care (01) ==
LOC: EC 13:53
DX: K08.89 Other specified disorders of teeth and supporting structures (principal); J45.909 Unspecified asthma, uncomplicated; Z91.018 Allergy to other foods; Z91.041 Radiographic dye allergy status; Z91.040 Latex allergy status; Z91.010 Allergy to peanuts; Z79.51 Long term (current) use of inhaled steroids
CPT/HCPCS: 99282

== ENCOUNTER → 2021-11-11 | Outpatient (CLI) | payer OTHER ==
--- NOTE | 2021-11-11 09:29 | MM ---
Reason for Exam: Clinical finding. Patient History: Menarche at age 11. First Full-Term at age 15. Patient has history of breast feeding. Patient used Hormonal Contraceptives for 2 years. Bilateral Reduction. Mother had breast cancer, age 45. Tissue Density: The breast tissue is heterogeneously dense. This may lower the sensitivity of mammography. Findings: Analyzed By CAD. Nothing to correlate with patient's pain. No suspicious masses distortions or calcifications. Overall Assessment: Negative, BI-RAD 1 Management: Screening Mammogram of both breasts at age 39. Clinical management for patient's pain. A clinical breast exam by your physician is recommended on an annual basis and results should be correlated with mammographic findings. This exam should not preclude additional follow-up of suspicious palpable abnormalities. Results were given to the patient verbally at the time of exam. Electronically signed and approved by: Emory Pham DO
== END | disposition home or self-care (01) ==
LOC: RADMAMWWP 07:53
PROVIDERS: ATTEND Family Medicine
DX: R92.8 Other abnormal and inconclusive findings on diagnostic imaging of breast (principal); Z80.3 Family history of malignant neoplasm of breast
CPT/HCPCS: 77066; G0279; 77062

== ENCOUNTER 2022-07-02 11:13 | Emergency (ER) | payer OTHER ==
[2022-07-02 11:24] VITALS: BP 114/75; PULSE 72; RESP 18; TEMP 97.5
--- NOTE | 2022-07-02 11:41 | ED ---
Female Urogenital HPI - General Chief complaint: Urogenital Stated complaint: numbness in lower extrem Time Seen by Provider: 07/02/22 11:29 Source: patient, RN notes reviewed Mode of arrival: ambulatory Limitations: no limitations - History of Present Illness Initial comments: Patient is a 31-year-old -[place] female presenting to the emergency room with complaints of changes in her urge to urinate, decrease in perineal sensation and changes in sensation during intercourse with occasional pain with intercourse. She also reports episodes of left thigh numbness but denies any at this time. She reports that she believes the symptoms all began after her lithotripsy which she thought was approximately one month ago however records indicate that this procedure was done on 03/31/2022. She does report chronic lower back pain without any changes or back pain. She denies any lower extremity weakness, bowel or bladder incontinence, saddle paresthesia or other red flag symptoms for cauda equina. She denies any chest pain, shortness of breath, abdominal pain, nausea, vomiting, dysuria, hematuria, flank pain, headache, dizziness, fevers or chills. Last Menstrual Period: 06/06/22 - Related Data Home Medications Medication Instructions Recorded Confirmed Albuterol Inhaler [Ventolin Hfa 1 puff INHALATION RT-QID PRN 04/02/17 07/03/22 Inhaler] Cetirizine HCl [Zyrtec] 10 mg PO DAILY 07/03/22 07/03/22 Naproxen Sodium [Aleve] 220 mg PO DAILY PRN 07/03/22 07/03/22 Allergies Allergy/AdvReac Type Severity Reaction Status Date / Time banana Allergy Anaphylaxis Verified 07/03/22 17:28 blueberry Allergy Anaphylaxis Verified 07/03/22 17:28 Iodinated Contrast Media Allergy Itching Verified 07/03/22 17:28 [Iodinated Contrast- Oral and IV Dye] kiwi Allergy Anaphylaxis Verified 07/03/22 17:28 latex Allergy Rash/Hives Verified 07/03/22 17:28 onion Allergy Anaphylaxis Verified 07/03/22 17:28 peanut Allergy Anaphylaxis Verified 07/03/22 17:28 raspberry Allergy Anaphylaxis Verified 07/03/22 17:28 strawberry Allergy Anaphylaxis Verified 07/03/22 17:28 tomato Allergy Anaphylaxis Verified 07/03/22 17:28 FRUIT Allergy Anaphylaxis Uncoded 07/03/22 17:28 Review of Systems ROS Statement: Those systems with pertinent positive or pertinent negative responses have been documented in the HPI. ROS Other: All systems not noted in ROS Statement are negative. Past Medical History Past Medical History: Asthma Additional Past Medical History / Comment(s): frequent UTI History of Any Multi-Drug Resistant Organisms: None Reported Past Surgical History: Breast Surgery Additional Past Surgical History / Comment(s): breat reduction Past Anesthesia/Blood Transfusion Reactions: No Reported Reaction Additional Past Anesthesia/Blood Transfusion Reaction / Comment(s): "my mom took her a while to wake up" Past Psychological History: Anxiety Smoking Status: Never smoker Past Alcohol Use History: Occasional Past Drug Use History: None Reported - Past Family History Mother Family Medical History: Cancer Additional Family Medical History / Comment(s): breast General Exam - General Exam Comments Initial Comments: GENERAL: No acute distress, well developed, well nourished. HEENT: Normocephalic, atraumatic. Pupils equal, round, reactive to light. Moist mucous membranes. LUNGS: No respiratory distress. Clear to auscultation, no adventitious sounds, no use of accessory muscles. HEART: Regular rate and rhythm without murmur, rub, or gallop. ABDOMEN: Normal bowel sounds. Soft, non-tender, non-distended. BACK: Normal inspection. No CVA tenderness. EXTREMITIES: No edema. No tenderness. Moves all extremities. Strength equal and strong bilateral upper and lower extremities. NEUROLOGIC: Alert & oriented x 3. CN II-XII grossly intact. PSYCHIATRIC: Normal affect and behavior. DERMATOLOGIC: Skin intact, without rashes or lesions noted. Limitations: no limitations Course Vital Signs 07/02/22 11:18 Temperature 97.5 F L Pulse Rate 72 Respiratory 18 Rate Blood Pressure 114/75 O2 Sat by Pulse 100 Oximetry Medical Decision Making - Medical Decision Making Was pt. sent in by a medical professional or institution (, PA, GENERAL INTERN, urgent care, hospital, or penitentiary...) When possible be specific @ -No Did you speak to anyone other than the patient for history (EMS, parent, family, police, friend...)? What history was obtained from this source @ -No Did you review nursing and triage notes (agree or disagree)? Why? @ -I reviewed and agree with nursing and triage notes except patient reports lithotripsy one month ago and records indicate HE was 3 months ago. Were old charts reviewed (outside hosp., previous admission, EMS record, old EKG, old radiological studies, urgent care reports/EKG's, penitentiary records)? Report findings @ -Yes, I reviewed lithotripsy report from 03/31/2022. Differential Diagnosis (chest pain, altered mental status, abdominal pain women, abdominal pain men, vaginal bleeding, weakness, fever, dyspnea, syncope, headache, dizziness, GI bleed, back pain, seizure, CVA, palpatations, mental health, musculoskeletal)? @ -Differential Back Pain: Strain, zoster, cauda equina syndrome, epidural abscess, vertebral osteomyelitis, discitis, fracture, subluxation, disc herniation, DJD, spinal stenosis, dissection, AAA, pancreatitis, peptic ulcer disease, pyelonephritis, kidney stone, this is not meant to be an all-inclusive list. EKG interpreted by me (3pts min.). @ -None done X-rays interpreted by me (1pt min.). @ -None done CT interpreted by me (1pt min.). @ -None done U/S (1pt. min.). @ -Ultrasound kidneys renal bladder not interpreted by me; report per radiologist bilateral nonobstructing nephrolithiasis. No hydronephrosis. Bladder is anechoic What testing was considered but not performed or refused? (CT, X-rays, U/S, labs)? Why? @ -X-ray of lumbar spine considered but deferred due to lack of associated symptoms at this time, low pain levels and lack of trauma. What meds were considered but not given or refused? Why? @ -None Did you discuss the management of the patient with other professionals (professionals i.e. , PA, GENERAL INTERN, lab, RT, psych nurse, certified social workers in health care, studio manager, teacher, contact officer, case assistant)? Give summary @ -No Was smoking cessation discussed for >3mins.? @ -No Was critical care preformed (if so, how long)? @ -No Were there social determinants of health that impacted care today? How? (Homelessness, low income, unemployed, alcoholism, drug addiction, transportation, low edu. Level, literacy, decrease access to med. care, [facility]ci, rehab)? @ -No Was there de-escalation of care discussed even if they declined (Discuss DNR or withdrawal of care, Hospice)? DNR status @ -No What co-morbidities impacted this encounter? (DM, HTN, Smoking, COPD, CAD, Cancer, CVA, ARF, Chemo, Hep., AIDS, mental health diagnosis, sleep apnea, morbid obesity)? @ -None Was patient admitted / discharged? Hospital course, mention meds given and r oute, prescriptions, significant lab abnormalities, going to OR and other pertinent info. @ -31-year-old -[place] female presenting to the emergency room with complaints of changes in her urge to urinate, decrease in perineal sensation and changes in sensation during intercourse with occasional pain with intercourse. She also reports episodes of left thigh numbness but denies any at this time. She reports that she believes the symptoms all began after her lithotripsy which she thought was approximately one month ago however records indicate that this procedure was done on 03/31/2022. She does report chronic lower back pain without any changes or back pain. No red flag symptoms of cauda equina. No recent trauma no indication for diagnostic imaging of lower back. In the setting of changes in urinary urge without any dysuria and recent lithotripsy will obtain ultrasound of the kidneys, and bladder to evaluate for any concerns of obstruction/hydronephrosis. Will also obtain CBC to evaluate for infection; CMP and urinalysis along with urine for . Ultrasound kidney and bladder demonstrates nonobstructing nephrolithiasis without hydronephrosis or abnormalities in the urinary bladder. CBC and CMP without any abnormalities. Urine for not detected, urinalysis with trace leukocyte esterase however mucus is noted with no bacteria likely conta minant no indication for treatment for urinary tract infection. All above findings discussed with patient at length. Advised no indication for further diagnostic imaging or laboratory studies at this time. Encouraged follow-up with GENERAL SCRAP WORKER regarding concerns for decreased perineal sensation and occasional pain with intercourse. Encouraged follow-up with urology regarding nephrolithiasis and urinary urge symptoms. Encouraged follow-up with primary care provider with possible referral to spinal specialist for chronic lower back pain with occasional radiculopathy not present on current exam. Questions and concerns answered. Return parameters to the emergency room discussed. Will discharge home in stable condition advising monitoring and follow-up for urinary urge changes and low back pain with occasional radiculopathy to left leg. Undiagnosed new problem with uncertain prognosis? @ -No Drug Therapy requiring intensive monitoring for toxicity (Heparin, Nitro, Insulin, Cardizem)? @ -No Were any procedures done? @ -No Diagnosis/symptom? @ -Urinary troubles/changes in urination Acute, or Chronic, or Acute on Chronic? @ -Acute Uncomplicated (without systemic symptoms) or Complicated (systemic symptoms)? @ -Uncomplicated Side effects of treatment? @ -No Exacerbation, Progression, or Severe Exacerbation? @ -No Poses a threat to life or bodily function? How? (Chest pain, USA, ID, pneumonia, PE, COPD, DKA, ARF, appy, cholecystitis, CVA, Diverticulitis, Homicidal, Suic idal, threat to staff... and all critical care pts) @ -No Diagnosis/symptom? @ -Low back pain with radiation to left leg Acute, or Chronic, or Acute on Chronic? @ -Acute on chronic Uncomplicated (without systemic symptoms) or Complicated (systemic symptoms)? @ -Uncomplicated Side effects of treatment? @ -none Exacerbation, Progression, or Severe Exacerbation] @ -no Poses a threat to life or bodily function? @ -no Case discussed with Dr. Egan. - Lab Data Result diagrams: 07/02/22 12:35 07/02/22 12:35 Lab Results 07/02/22 07/02/22 07/02/22 Range/Units 12:35 12:35 12:35 WBC 5.0 (3.8-10.6) k/uL RBC 4.53 (3.80-5.40) m/uL Hgb 13.7 (11.4-16.0) gm/dL Hct 41.0 (34.0-46.0) % MCV 90.6 (80.0-100.0) fL MCH 30.3 (25.0-35.0) pg MCHC 33.4 (31.0-37.0) g/dL RDW 12.8 (11.5-15.5) % Plt Count 219 (150-450) k/uL MPV 8.9 Neutrophils % 62 % Lymphocytes % 26 % Monocytes % 5 % Eosinophils % 4 % Basophils % 1 % Neutrophils # 3.1 (1.3-7.7) k/uL Lymphocytes # 1.3 (1.0-4.8) k/uL Monocytes # 0.3 (0-1.0) k/uL Eosinophils # 0.2 (0-0.7) k/uL Basophils # 0.0 (0-0.2) k/uL Sodium 140 (137-145) mmol/L Potassium 3.6 (3.5-5.1) mmol/L Chloride 106 (98-107) mmol/L Carbon Dioxide 22 (22-30) mmol/L Anion Gap 12 mmol/L BUN 7 (7-17) mg/dL Creatinine 0.72 (0.52-1.04) mg/dL Est GFR (CKD-EPI)AfAm >90 (>60 ml/min/1.73 sqM) Est GFR (CKD-EPI)NonAf >90 (>60 ml/min/1.73 sqM) Glucose 89 (74-99) mg/dL Calcium 9.2 (8.4-10.2) mg/dL Total Bilirubin 0.8 (0.2-1.3) mg/dL AST 21 (14-36) U/L ALT 15 (4-34) U/L Alkaline Phosphatase 66 (38-126) U/L Total Protein 7.8 (6.3-8.2) g/dL Albumin 4.5 (3.5-5.0) g/dL Urine Color Light Yellow Urine Appearance Clear (Clear) Urine pH 6.0 (5.0-8.0) Ur Specific Peak 1.005 (1.001-1.035) Urine Protein Negative (Negative) Urine Glucose (UA) Negative (Negative) Urine Ketones Negative (Negative) Urine Blood Negative (Negative) Urine Nitrite Negative (Negative) Urine Bilirubin Negative (Negative) Urine Urobilinogen <2.0 (<2.0) mg/dL Ur Leukocyte Esterase Trace H (Negative) Urine RBC 1 (0-5) /hpf Urine WBC 1 (0-5) /hpf Urine Mucus Rare H (None) /hpf Urine HCG, Qual (Not Detectd) 07/02/22 Range/Units 12:35 WBC (3.8-10.6) k/uL RBC (3.80-5.40) m/uL Hgb (11.4-16.0) gm/dL Hct (34.0-46.0) % MCV (80.0-100.0) fL MCH (25.0-35.0) pg MCHC (31.0-37.0) g/dL RDW (11.5-15.5) % Plt Count (150-450) k/uL MPV Neutrophils % % Lymphocytes % % Monocytes % % Eosinophils % % Basophils % % Neutrophils # (1.3-7.7) k/uL Lymphocytes # (1.0-4.8) k/uL Monocytes # (0-1.0) k/uL Eosinophils # (0-0.7) k/uL Basophils # (0-0.2) k/uL Sodium (137-145) mmol/L Potassium (3.5-5.1) mmol/L Chloride (98-107) mmol/L Carbon Dioxide (22-30) mmol/L Anion Gap mmol/L BUN (7-17) mg/dL Creatinine (0.52-1.04) mg/dL Est GFR (CKD-EPI)AfAm (>60 ml/min/1.73 sqM) Est GFR (CKD-EPI)NonAf (>60 ml/min/1.73 sqM) Glucose (74-99) mg/dL Calcium (8.4-10.2) mg/dL Total Bilirubin (0.2-1.3) mg/dL AST (14-36) U/L ALT (4-34) U/L Alkaline Phosphatase (38-126) U/L Total Protein (6.3-8.2) g/dL Albumin (3.5-5.0) g/dL Urine Color Urine Appearance (Clear) Urine pH (5.0-8.0) Ur Specific Peak (1.001-1.035) Urine Protein (Negative) Urine Glucose (UA) (Negative) Urine Ketones (Negative) Urine Blood (Negative) Urine Nitrite (Negative) Urine Bilirubin (Negative) Urine Urobilinogen (<2.0) mg/dL Ur Leukocyte Esterase (Negative) Urine RBC (0-5) /hpf Urine WBC (0-5) /hpf Urine Mucus (None) /hpf Urine HCG, Qual Not Detected (Not Detectd) - Radiology Data Radiology results: report reviewed, image reviewed Disposition Clinical Impression: Urine troubles, Low back pain radiating to left leg Disposition: HOME SELF-CARE Condition: Stable Instructions (If sedation given, give patient instructions): Lumbar Radiculopathy (ED), Back Pain (ED), Lower Back Exercises (ED) Additional Instructions: Please stay well hydrated. Utilize Tylenol or Motrin [id number] as needed for pain. Please follow-up with primary care provider. Please return to the Emergency Department if symptoms worsen or any other concerns. Is patient prescribed a controlled substance at d/c from ED?: No Referrals: Shereen Pace DO [Primary Care Provider] - 1-2 days Time of Disposition: 13:32
[2022-07-02 12:47] LABS: Appearance,Urine Clear (Clear); Basophils % (A) 1 %; Bilirubin,Urine Negative (Negative); Blood,Urine Negative (Negative); Color,Urine Light Yellow; Eosinophils # (A) 0.2 k/uL (0-0.7); Eosinophils % (A) 4 %; Glucose,Urine (UA) Negative (Negative); HGB 13.7 gm/dL (11.4-16.0); Ketones,Urine Negative (Negative); Leukocyte Esterase,Urine Trace (Negative); Lymphocytes # (A) 1.3 k/uL (1.0-4.8); Lymphocytes % (A) 26 %; MCH 30.3 pg (25.0-35.0); MCHC 33.4 g/dL (31.0-37.0); MCV 90.6 fL (80.0-100.0); Mean Platelet Volume 8.9; Monocytes # (A) 0.3 k/uL (0-1.0); Monocytes % (A) 5 %; Mucus,Urine Rare /hpf; Neutrophils # (A) 3.1 k/uL (1.3-7.7); Neutrophils % (A) 62 %; Nitrite,Urine Negative (Negative); Platelet Count 219 k/uL (150-450); Protein,Urine Negative (Negative); RBC 4.53 m/uL (3.80-5.40); RBC,Urine 1 /hpf (0-5); RDW 12.8 % (11.5-15.5); Specific Gravity,Urine 1.005 (1.001-1.035); Urobilinogen,Urine <2.0 mg/dL (<2.0); WBC,Urine 1 /hpf (0-5)
--- NOTE | 2022-07-02 12:48 | US ---
EXAMINATION TYPE: US kidneys/renal and bladder DATE OF EXAM: 07/02/2022 COMPARISON: CT March 30, 2022 CLINICAL INDICATION: Female, 31 years old with history of decrease urinary sensation; Decreased urina ry sensation. Hx of lithotripsy. EXAM MEASUREMENTS: Right Kidney: 9.4 x 5.0 x 4.0 cm Left Kidney: 9.1 x 5.3 x 5.6 cm Right Kidney: Hyperechoic focus seen upper pole: 0.4 x 0.3 x 0.4 cm. Left Kidney: Hyperechoic focus seen medially: 0.5 x 0.3 x 0.5 cm. Bladder: Appears anechoic. Bilateral Jets seen: Yes Hyperechoic foci bilaterally suspicious for small bilateral renal calculi correlates with most recent CT. Medullary differentiation is maintained. No obvious hydronephrosis seen bilaterally. No concerni ng solid or cystic renal masses. Urinary bladder is adequately distended. Bilateral distal ureter jet s are seen. IMPRESSION: Bilateral nonobstructing nephrolithiasis redemonstrated. No hydronephrosis identified evangelina aterally on current study.
[2022-07-02 12:58] LABS: ALT 15 U/L (4-34); AST 21 U/L (14-36); African American GFR (CKD) >90 (>60 ml/min/1.73 sqM); Albumin 4.5 g/dL (3.5-5.0); Alkaline Phosphatase 66 U/L (38-126); Anion Gap 12 mmol/L; Blood Urea Nitrogen 7 mg/dL (7-17); Calcium 9.2 mg/dL (8.4-10.2); Carbon Dioxide 22 mmol/L (22-30); Chloride 106 mmol/L (98-107); Glucose 89 mg/dL (74-99); Non-African American GFR(CKD) >90 (>60 ml/min/1.73 sqM); Potassium 3.6 mmol/L (3.5-5.1); Sodium 140 mmol/L (137-145); Total Bilirubin 0.8 mg/dL (0.2-1.3); Total Protein 7.8 g/dL (6.3-8.2)
== END 2022-07-02 14:10 | disposition home or self-care (01) ==
LOC: EC 11:13
DX: M54.50 Low back pain, unspecified (principal); M79.605 Pain in left leg; N39.9 Disorder of urinary system, unspecified; J45.909 Unspecified asthma, uncomplicated; F41.9 Anxiety disorder, unspecified; Z91.040 Latex allergy status; Z91.018 Allergy to other foods; Z91.041 Radiographic dye allergy status; Z88.8 Allergy status to other drugs, medicaments and biological substances
CPT/HCPCS: 36415; 76770; 80053; 81001; 81025; 85025; 99284

== ENCOUNTER 2022-07-03 14:55 | Observation (INO) | payer OTHER ==
--- NOTE | 2022-07-03 15:51 | ED ---
Back Pain HPI - General Chief Complaint: Recheck/Abnormal Lab/Rx Stated Complaint: female Time Seen by Provider: 07/03/22 15:37 Source: patient, RN notes reviewed Mode of arrival: ambulatory Limitations: no limitations - History of Present Illness Initial Comments: This is a 31-year-old female who presents to the emergency department for numbness in her back and lower extremities. She had a lithotripsy on 03/31/22. States that since then, she has continued to have numbness in her mid to lower back. This has progressed and she is now having numbness in the genitals and bilateral lower extremities. Feels like she has decreased sensation of when she needs to use the bathroom with relation to both the bladder and bowels. However, she is still able to make it to the restroom, and she has not had any episodes of incontinence. Denies any injuries. She does not describe this as pain in the back, again states that it is more so a numbness sensation. Denies any fevers, chills, sore throat, cough, dyspnea, chest pain, palpitations, abdominal pain, nausea, vomiting, diarrhea, or headaches. - Related Data Home Medications Medication Instructions Recorded Confirmed Albuterol Inhaler [Ventolin Hfa 1 puff INHALATION RT-QID PRN 04/02/17 07/03/22 Inhaler] Cetirizine HCl [Zyrtec] 10 mg PO DAILY 07/03/22 07/03/22 Naproxen Sodium [Aleve] 220 mg PO DAILY PRN 07/03/22 07/03/22 Allergies Allergy/AdvReac Type Severity Reaction Status Date / Time banana Allergy Anaphylaxis Verified 07/03/22 17:28 blueberry Allergy Anaphylaxis Verified 07/03/22 17:28 Iodinated Contrast Media Allergy Itching Verified 07/03/22 17:28 [Iodinated Contrast- Oral and IV Dye] kiwi Allergy Anaphylaxis Verified 07/03/22 17:28 latex Allergy Rash/Hives Verified 07/03/22 17:28 onion Allergy Anaphylaxis Verified 07/03/22 17:28 peanut Allergy Anaphylaxis Verified 07/03/22 17:28 raspberry Allergy Anaphylaxis Verified 07/03/22 17:28 strawberry Allergy Anaphylaxis Verified 07/03/22 17:28 tomato Allergy Anaphylaxis Verified 07/03/22 17:28 FRUIT Allergy Anaphylaxis Uncoded 07/03/22 17:28 Review of Systems ROS Statement: Those systems with pertinent positive or pertinent negative responses have been documented in the HPI. ROS Other: All systems not noted in ROS Statement are negative. Past Medical History Past Medical History: Asthma Additional Past Medical History / Comment(s): frequent UTI History of Any Multi-Drug Resistant Organisms: None Reported Past Surgical History: Breast Surgery Additional Past Surgical History / Comment(s): breat reduction Past Anesthesia/Blood Transfusion Reactions: No Reported Reaction Additional Past Anesthesia/Blood Transfusion Reaction / Comment(s): "my mom took her a while to wake up" Past Psychological History: Anxiety Smoking Status: Never smoker Past Alcohol Use History: Occasional Past Drug Use History: None Reported - Past Family History Mother Family Medical History: Cancer Additional Family Medical History / Comment(s): breast General Exam Limitations: no limitations General appearance: alert, in no apparent distress Head exam: Present: atraumatic, normocephalic, normal inspection Respiratory exam: Present: normal lung sounds bilaterally. Absent: respiratory distress, wheezes, rales, rhonchi, stridor Cardiovascular Exam: Present: regular rate, normal rhythm, normal heart sounds. Absent: systolic murmur, diastolic murmur, rubs, gallop, clicks Back exam: Present: normal inspection, full ROM. Absent: tenderness, CVA tenderness (R), CVA tenderness (L) Neurological exam: Present: alert Psychiatric exam: Present: normal affect, normal mood Skin exam: Present: warm, dry, intact, normal color. Absent: rash Course Vital Signs 07/03/22 07/03/22 15:31 18:30 Temperature 98.9 F 97.6 F Pulse Rate 81 67 Respiratory 18 18 Rate Blood Pressure 115/74 101/62 O2 Sat by Pulse 99 100 Oximetry Medical Decision Making - Medical Decision Making This is a 31-year-old female who presents to the emergency department for back pain and numbness. Was pt. sent in by a medical professional or institution? @ -No Did you speak to anyone other than the patient for history? @ -No Did you review nursing and triage notes? @ -Yes, and I agree, it is accurate with regards to the patient's symptoms. Were old charts reviewed? @ -No Differential Diagnosis? @ -Differential Back Pain: Strain, zoster, cauda equina syndrome, epidural abscess, vertebral osteomyelitis, discitis, fracture, subluxation, disc herniation, DJD, spinal stenosis, dissection, AAA, pancreatitis, peptic ulcer disease, pyelonephritis, kidney stone, this is not meant to be an all-inclusive list. EKG interpreted by me (3pts min.)? @ -Not obtained X-rays interpreted by me (1pt min.)? @ -Not obtained CT interpreted by me (1pt min.)? @ -Computed tomography scan of the thoracic and lumbar spine obtained. My interpretation identifies no evidence of any fractures or spinal canal stenosis. U/S interpreted by me (1pt. min.)? @ -Not obtained What testing was considered but not performed? (CT, X-rays, U/S, labs)? Why? @ -None What meds were considered but not given? Why? @ -None Did you discuss the management of the patient with other professionals? @ -Yes, Dr. Art, who accepts the patient for admission. Did you reconcile home meds? @ -No Was smoking cessation discussed for >3mins.? @ -No Was critical care preformed (if so, how long)? @ -No Were there social determinants of health that impacted care today? How? (Homelessness, low income, unemployed, alcoholism, drug addiction, transportation, low edu. Level, literacy, decrease access to med. care, [facility], rehab)? @ -No Was there de-escalation of care discussed even if they declined? (Discuss DNR or withdrawal of care, Hospice)? @ -No What co-morbidities impacted this encounter? (DM, HTN, Smoking, COPD, CAD, Cancer, CVA, Hep., AIDS, mental health diagnosis, sleep apnea, morbid obesity)? @ -None Was patient admitted / discharged? @ -Admitted. Computed tomography scan of the thoracic and lumbar spine obtained revealing no acute findings. The cause of her symptoms is not clear at this point. Case discussed with Dr. Art with regards to the fact that she was sent in by Dr. Pace for an MRI. He accepts the patient for admission and requests consult with Dr. Wang. Dr. Wang listed as consult. Patient ad mitted to medicine for further management. Undiagnosed new problem with uncertain prognosis? @ -None Drug Therapy requiring intensive monitoring for toxicity (Heparin, Nitro, Insulin, Cardizem)? @ -None Were any procedures done? @ -None Diagnosis/symptom? @ -Saddle anesthesia Acute, or Chronic, or Acute on Chronic? @ -Acute Uncomplicated (without systemic symptoms) or Complicated (systemic symptoms)? @ -Complicated Side effects of treatment? @ -None Exacerbation, Progression, or Severe Exacerbation] @ -Not applicable Poses a threat to life or bodily function? @ -Yes This case was discussed in detail with the attending ED physician, Dr. Sales. Presentation, findings, and treatment plan discussed in detail as well. - Radiology Data Radiology results: report reviewed, image reviewed Disposition Clinical Impression: Saddle anesthesia Disposition: ADMITTED IP TO THIS HOSP
--- NOTE | 2022-07-03 16:39 | CT ---
EXAMINATION TYPE: CT thor lumbar spine wo con CT DLP: 592.3 mGycm, Automated exposure control for dose reduction was used. DATE OF EXAM: 07/03/2022 4:12 PM CLINICAL INDICATION:Female, 31 years old with history of Thoracic/lumbar spine numbness, saddle anest hesia; Thoracic/lumbar spine numbness, saddle anesthesia COMPARISON: 03/30/2022 TECHNIQUE: Axial images of the thoracic and lumbar spine were obtained without contrast. Coronal and sagittal reformats were performed. CT Contrast: Contrast used: none. Oral contrast used: none. FINDINGS: Thoracic: Mild scoliosis changes apex left L1-L2. Intervertebral discs and osseous structures have normal appe arance. No evidence for extradural defects nor significant spinal canal narrowing at any thoracic vertebral b tiffany level. Lumbar: Alignment: There are 5 lumbar type vertebral bodies within normal alignment. Bone: No evidence of fracture is identified. Discs: T12-L1: No spinal canal or neural foraminal stenosis is identified. L1-L2: No spinal canal or neural foraminal stenosis is identified. L2-L3: No spinal canal or neural foraminal stenosis is identified. L3-L4: No spinal canal or neural foraminal stenosis is identified. L4-L5: No spinal canal or neural foraminal stenosis is identified. L5-S1: No spinal canal or neural foraminal stenosis is identified. Other: Nonobstructing bilateral renal calculi measuring up to 3 mm on the right and 4 mm on the left. IMPRESSION: 1. No evidence of fracture. No evidence for significant spinal canal or neural foraminal stenosis gi lauri limitations of CT technique. 2. Mild scoliosis changes are present. 3. Nonobstructing bilateral renal calculi.
[2022-07-03] MEDS ORDERED: HYDROcodone/APAP 5-325MG 1 EACH TAB PO PRN (17:08)
[2022-07-03] MEDS ORDERED: IBUPROFEN 400 MG TAB PO PRN (17:08)
[2022-07-03] MEDS ORDERED: ACETAMINOPHEN TAB 325 MG TAB PO PRN (17:08)
[2022-07-03] MEDS ORDERED: NALOXONE 0.4 MG/ML 1 ML VIAL IV PRN (17:08)
[2022-07-03] MEDS ORDERED: ONDANSETRON ODT 4 MG TAB PO PRN (17:13)
[2022-07-04] MEDS: ALPRAZolam 0.25 MG TAB PO PRN ×3 (09:11→23:20)
--- NOTE | 2022-07-04 09:15 | P.CNOR ---
History of Present Illness - [facility] Consult date: 07/04/22 History of present illness: The patient is a very pleasant 31-year-old female who is seen and examined at bedside for further evaluation of her lumbar spine. She states she is known to have undergone orthotripsy and significant kidney stones on 03/31/2022. She does feel at that time she did have some numbness and frequency with urination while undergoing treatment for right ureteral stone. Over the past several days but less than a week, she states she has had significant changes and worsening symptoms. She describes several anesthesia. She states she has numbness in her genitalia, lower back, buttocks, and the ante rior thighs. She states the numbness can radiate down her posterior thighs and calves as well. She denies any injuries. She denies any lower extremity weakness. She is able to ambulate in the room without any significant difficulty. She is known have scoliosis. She states she is unable to tell whether she has had a bowel movement or when she needs to urinate. She was seen and evaluated in the emergency department on 07/02/2022. She was discharged from the hospital through the emergency department at that time with recommendation to follow-up with her primary care provider. She presented back to the emergency department yesterday, 07/03/2022, for further evaluation. Given her worsening symptoms she was admitted for further evaluation. Patient states she was planning for MRI imaging of the lumbar spine through her primary care provider but is not sure when that was scheduled. She did undergo CT imaging the thoracic and lumbar spine in the emergency department without significant findings on that imaging. She is known to have scoliosis. She states she was diagnosed as a child. Patient does admit to significant anxiety. She states she does occasionally experience numbness over her whole face. She states she did have a tear and on her fascia yesterday but was unable to feel that tear on her cheek. She has not had evaluation with neurology. Past Medical History Past Medical History: Asthma Additional Past Medical History / Comment(s): frequent UTI History of Any Multi-Drug Resistant Organisms: None Reported Past Surgical History: Breast Surgery Additional Past Surgical History / Comment(s): breat reduction, lithotripsy Past Anesthesia/Blood Transfusion Reactions: No Reported Reaction Additional Past Anesthesia/Blood Transfusion Reaction / Comm: "my mom took her a while to wake up" Past Psychological History: Anxiety Smoking Status: Never smoker Past Alcohol Use History: Occasional Past Drug Use History: None Reported - Past Family History Mother Family Medical History: Cancer Additional Family Medical History / Comment(s): breast Medications and Allergies Home Medications Medication Instructions Recorded Confirmed Type Albuterol Inhaler [Ventolin Hfa 1 puff INHALATION RT-QID PRN 04/02/17 07/03/22 History Inhaler] Cetirizine HCl [Zyrtec] 10 mg PO DAILY 07/03/22 07/03/22 History Naproxen Sodium [Aleve] 220 mg PO DAILY PRN 07/03/22 07/03/22 History Allergies Allergy/AdvReac Type Severity Reaction Status Date / Time banana Allergy Anaphylaxis Verified 07/03/22 17:28 blueberry Allergy Anaphylaxis Verified 07/03/22 17:28 Iodinated Contrast Media Allergy Itching Verified 07/03/22 17:28 [Iodinated Contrast- Oral and IV Dye] kiwi Allergy Anaphylaxis Verified 07/03/22 17:28 latex Allergy Rash/Hives Verified 07/03/22 17:28 onion Allergy Anaphylaxis Verified 07/03/22 17:28 peanut Allergy Anaphylaxis Verified 07/03/22 17:28 raspberry Allergy Anaphylaxis Verified 07/03/22 17:28 strawberry Allergy Anaphylaxis Verified 07/03/22 17:28 tomato Allergy Anaphylaxis Verified 07/03/22 17:28 FRUIT Allergy Anaphylaxis Uncoded 07/03/22 17:28 Physical Examination Osteopathic Statement: *. No significant issues noted on an osteopathic structural exam other than those noted in the History and Physical/Consult. Physical exam: Patient is awake, alert, and oriented 3 Vital signs stable Good chest excursion with deep inspiration and expiration Examination of lumbar spine reveals skin is intact with no abrasions, lacerations, or bruises; no erythema, purulence or signs of infection No significant pain with palpation over the lumbar spine Dorsiflexion, plantarflexion, and extensor hallucis longus positive sustained bilaterally Lower extremity strength 5/5 bilaterally Patellar reflex 3+-4+ bilaterally Lower extremity hyperreflexia bilaterally No clonus of the lower extremities Straight leg test negative bilateral lower extremities No signs or symptoms of DVT; no calf pain No pain with internal and external rotation of the hips bilaterally Results Pertinent studies: CT of the thoracic and lumbar spine taken on 07/03/2022: No significant degenerative disc disease; no obvious herniated nucleus pulposus; no obvious spinal stenosis; no spondylolisthesis; no vertebral body compression fracture; scoliosis with the apex of the curvature at L1-2 - Labs Result Diagrams: 07/04/22 11:04 07/04/22 11:04 Assessment and Plan Assessment: Assessment: Saddle anesthesia symptoms with genital numbness, buttock numbness Numbness over the anterior thighs and posterior thighs to the calves Lower extremity radiculopathy Changes in sensation with urination and bowel movements Lower extremity hyperreflexia Rule out cauda equina History of lithotripsy for right ureteral stone on 03/31/2022 Significant anxiety Facial numbness Scoliosis (1) Scoliosis Current Visit: Yes Status: Acute Code(s): M41.9 - SCOLIOSIS, UNSPECIFIED SNOMED Code(s): 800309789 (2) Anxiety Current Visit: Yes Status: Acute Code(s): F41.9 - ANXIETY DISORDER, UNSPECIFIED SNOMED Code(s): 89976022 (3) History of lithotripsy Current Visit: Yes Status: Acute Code(s): Z98.890 - OTHER SPECIFIED POSTPROCEDURAL STATES SNOMED Code(s): 000322690 (4) Radiculopathy with lower extremity symptoms Current Visit: Yes Status: Acute Code(s): M54.10 - RADICULOPATHY, SITE UNSPECIFIED SNOMED Code(s): 16941373 (5) Hyperreflexia Current Visit: Yes Status: Acute Code(s): R29.2 - ABNORMAL REFLEX SNOMED Code(s): 17344913 (6) Facial numbness Current Visit: Yes Status: Acute Code(s): R20.0 - ANESTHESIA OF SKIN SNOMED Code(s): 507581790 (7) Alterations of sensations Current Visit: Yes Status: Acute Code(s): R20.9 - UNSPECIFIED DISTURBANCES OF SKIN SENSATION SNOMED Code(s): 820782424 (8) Saddle anesthesia Current Visit: Yes Status: Acute Code(s): R20.0 - ANESTHESIA OF SKIN SNOMED Code(s): 46145252 Plan: Plan: 1. Patient is discussed in significant detail with Dr. Art in medicine. Ajith jones has a history of lithotripsy for right ureteral stone on 03/31/2022. She states she did have difficulty with kidney stones at that time and frequent urination. More recently, she has been experiencing significant genital numbness and numbness into the buttocks and anterior thighs over the past several days. She also has some numbness and tingling that radiates down the posterior thighs and calves. She denies any injuries. She states she has had difficulty sensing when she needs to urinate or have a bowel movement. She denies any lower extremity weakness bilaterally. She denies any injuries. On physical examination her lower extremity strength is 5/5. She is able to ambulate the room freely without difficulty. She does have evidence of hyperreflexia with her patellar reflexes bilaterally. I do not see evidence of clonus. CT imaging of the lumbar spine did not show any obvious significant findings. I do not see evidence of spondylolisthesis, obvious herniated nucleus pulposus, compression fracture deformity, or degenerative disc disease. Given her significant symptoms which have been worsening over the past couple days. Patient should undergo stat MRI imaging of the lumbar spine. There were no significant findings on her thoracic and lumbar CT imaging, however, MRI imaging would better evaluate her intervertebral disc spacing, spinal cord, possible disc herniation and stenosis, and nerves. This was discussed with Dr. Art in medicine. He is the attending. He is ordering this MRI. This MRI is planning to be performed today. It was discussed with the patient that following the MRI we would review this imaging and discuss the imaging any plan of care proceeding forward. It was discussed in significant detail that if this MRI is unable to be performed at [facility] today, the patient will be transferred to a tertiary facility who would be able to perform her MRI imaging today. 2. Patient also admits to bilateral facial numbness that has been ongoing and intermittent, however, she was unable to sense a tear running down her face yesterday. She has not had any evaluation with neurology previously. Given her current symptoms in regards to her saddle anesthesia, lower extremity numbness and tingling, as well as facial numbness, who currently planned for consultation with neurology for further evaluation. 3. Patient will continue to be seen and examined by medicine as well. She is admitted to medicine. Reviewed the patient information as well as imaging from 07/04/2022. I agree with plan as stated above and the further imaging. I was able to review the MRI of the lumbar spine today which do not show any evidence of cauda equina issues or any significant stenosis or lumbar spine or any neurologic compressive issue. We will continue further workup and follow along. Time with Patient: Greater than 30 (Including obtaining history, physical examination, reviewing of imaging, and dictation.)
[2022-07-04 11:33] LABS: Basophils % (A) 0 %; Eosinophils # (A) 0.1 k/uL (0-0.7); Eosinophils % (A) 1 %; HCT 42.2 % (34.0-46.0); HGB 14.1 gm/dL (11.4-16.0); Lymphocytes % (A) 19 %; MCH 30.8 pg (25.0-35.0); MCHC 33.5 g/dL (31.0-37.0); Monocytes # (A) 0.3 k/uL (0-1.0); Monocytes % (A) 6 %; Neutrophils # (A) 3.7 k/uL (1.3-7.7); Neutrophils % (A) 73 %; Platelet Count 206 k/uL (150-450); RBC 4.59 m/uL (3.80-5.40); RDW 12.4 % (11.5-15.5); WBC 5.1 k/uL (3.8-10.6)
[2022-07-04 11:44] LABS: ALT 13 U/L (4-34); AST 21 U/L (14-36); African American GFR (CKD) >90 (>60 ml/min/1.73 sqM); Albumin 4.5 g/dL (3.5-5.0); Albumin/Globulin Ratio 1.3; Alkaline Phosphatase 62 U/L (38-126); Anion Gap 11 mmol/L; Blood Urea Nitrogen 10 mg/dL (7-17); Calcium 9.7 mg/dL (8.4-10.2); Carbon Dioxide 23 mmol/L (22-30); Chloride 103 mmol/L (98-107); Globulin 3.4 g/dL; Glucose 101 mg/dL (74-99); Non-African American GFR(CKD) >90 (>60 ml/min/1.73 sqM); Potassium 4.4 mmol/L (3.5-5.1); Sodium 137 mmol/L (137-145); Total Bilirubin 0.9 mg/dL (0.2-1.3); Total Protein 7.9 g/dL (6.3-8.2)
[2022-07-04] MEDS ORDERED: LORazepam 2 MG/ML INJ IV STA (12:46)
--- NOTE | 2022-07-04 13:21 | P.CNNES ---
History of Present Illness Consult date: 07/04/22 Requesting physician: Ed Moses Reason for Consult: saddle anesthesia, lower extremity numbness and tingling, facial numbness History of Present Illness: This is a 31-year woman with history of kidney stones status post orthotripsy in 03/2022 who presented emergency department because of numbness in the inguinal region as well as urinary incontinence. Patient is accompanied with her significant other was at bedside that. She stated that that she had that kidney stones and she had orthotripsy in 03/2022 and shortly afterwards after that procedure she noticed that she is having numbness in the inguinal region as well as the she's been having urinary incontinence. She felt the inguinal numbness has been the progress and and she feels its involving the buttocks region in the thigh region. He also feels having some actual dysfunction recently. She had minimal diarrhea yesterday but that has resolved today. She denies of any focal weakness any falls. She denies of any upper extremity weakness or lower e xtremity weakness appear denies off difficulty swallowing or getting her words out. She said that she has chronic intermittent numbness of the hands but that very old. She does not feel her memory at is very sharp and that's not a new issue. She denies history of multiple sclerosis or any family history of multiple sclerosis. Denies of any recent fevers, diarrhea or any upper respiratory tract infection prior to her presentation. Denies of any recent fever. She feels her numbness is somewhat better today. Eyes of any lower back pain. Some of the workup consisted of: CBC with differential and Kamstra panel is unremarkable CT thoracic lumbar region is reported as no evidence of fracture. No evidence of for significant spinal canal or neuroforaminal stenosis given the limitation of the CT technique. Mild scoliosis change are present. Nitrogen regarding bilateral renal calculi Review of Systems Review of system: The 12 point system was reviewed and apparent positive and negative per HPI. Past Medical History Past Medical History: Asthma Additional Past Medical History / Comment(s): frequent UTI History of Any Multi-Drug Resistant Organisms: None Reported Past Surgical History: Breast Surgery Additional Past Surgical History / Comment(s): breat reduction, lithotripsy Past Anesthesia/Blood Transfusion Reactions: No Reported Reaction Additional Past Anesthesia/Blood Transfusion Reaction / Comment(s): "my mom took her a while to wake up" Past Psychological History: Anxiety Smoking Status: Never smoker Past Alcohol Use History: Occasional Past Drug Use History: None Reported - Past Family History Mother Family Medical History: Cancer Additional Family Medical History / Comment(s): breast Medications and Allergies Home Medications Medication Instructions Recorded Confirmed Type Albuterol Inhaler [Ventolin Hfa 1 puff INHALATION RT-QID PRN 04/02/17 07/03/22 History Inhaler] Cetirizine HCl [Zyrtec] 10 mg PO DAILY 07/03/22 07/03/22 History Naproxen Sodium [Aleve] 220 mg PO DAILY PRN 07/03/22 07/03/22 History Allergies Allergy/AdvReac Type Severity Reaction Status Date / Time banana Allergy Anaphylaxis Verified 07/03/22 17:28 blueberry Allergy Anaphylaxis Verified 07/03/22 17:28 Iodinated Contrast Media Allergy Itching Verified 07/03/22 17:28 [Iodinated Contrast- Oral and IV Dye] kiwi Allergy Anaphylaxis Verified 07/03/22 17:28 latex Allergy Rash/Hives Verified 07/03/22 17:28 onion Allergy Anaphylaxis Verified 07/03/22 17:28 peanut Allergy Anaphylaxis Verified 07/03/22 17:28 raspberry Allergy Anaphylaxis Verified 07/03/22 17:28 strawberry Allergy Anaphylaxis Verified 07/03/22 17:28 tomato Allergy Anaphylaxis Verified 07/03/22 17:28 FRUIT Allergy Anaphylaxis Uncoded 07/03/22 17:28 Physical Examination - Vital Signs Vital Signs: Vital Signs Temp Pulse Pulse Resp BP BP Pulse Ox 07/04/22 07:35 98.6 F 67 18 122/73 100 07/04/22 02:00 98.4 F 71 17 117/75 97 07/03/22 20:12 97.9 F 76 14 113/71 100 07/03/22 20:05 97.9 F 76 14 113/71 100 07/03/22 18:30 97.6 F 67 18 101/62 100 07/03/22 15:31 98.9 F 81 18 115/74 99 Intake and Output 07/03/22 07/04/22 07/04/22 22:59 06:59 14:59 Other: Voiding Method Toilet Toilet # Voids 1 2 Weight 57.606 kg GENERAL: The patient is lying in bed and is not in acute distress. CHEST: NO edema in lower extremities. LUNG: Not labored breathing. NEUROLOGICAL: Higher mental function: The patient is awake, alert, oriented to self, place and time. Patient is following commands. No aphasia and no neglect. Cranial nerves: The pupils are round, equal and reactive to light and accommodation. Visual nye are full to confrontation throughout. Extraocular movement is intact no nystagmus is noted. Facial sensation is normal to touch throughout. The facial strength is normal throughout. Hearing is normal bilaterally to hand rub. Tongue is midline and moved [id number] without any difficulty. No dysarthria is noted. Shoulder shrug is normal bilaterally. Motor: The strength is 5 over 5 throughout. Normal tone and bulk. Cerebellum: Normal finger to nose bilaterally. Sensation: Sensation is normal to touch throughout. Reflexes (right/left): 2+ throughout. Plantars are downgoing bilaterally. Results - Laboratory Findings CBC and BMP: 07/04/22 11:04 07/04/22 11:04 Abnormal Lab Findings: Abnormal Labs 07/04/22 11:04 Glucose 101 H Assessment and Plan Assessment: This is a 31-year-old woman who has history of kidney stones and had orthotripsy in 03/2022 who shortly after that noticed numbness in inguinal region. She also felt lack urinary urge and sexual dysfunction. Denies of focal weakness, back pain. Has old numbness of bilateral hands. Numbness in the inguinal region with lack of urinary urge and sexual dysfunction/Saddle Anesthesia: Rule out any Lumbar dysfunction. Numbness of hand that is old that is intermittent with symptoms above: Rule out Multiple Sclerosis. Does not appear GBS since has intact reflex. History of kidney stones History of asthma Plan: MRI of lumbar without is ordered by the orthopedic surgery team and I change it to within without. I also ordered MRI the brain and the cervical spine with and without Ordered TSH, vitamin B-12, folate. Ordered hemoglobin A1c as well as ALLISON. Recommend the patient to follow-up with a neurologist as an outpatient and recommended EMG with nerve conduction study of the uppers and lowers. Orthopedic Surgery team is on board We'll defer the rest of the medical management to primary team Plan discussed with the patient and her significant other was at bedside Thank you for the consultation Time with Patient: Greater than 30
--- NOTE | 2022-07-04 13:54 | MR ---
EXAMINATION TYPE: MR lumbar spine wo/w con DATE OF EXAM: 07/04/2022 COMPARISON: CT thoracolumbar spine from one day earlier HISTORY: Saddle anesthesia. TECHNIQUE: Multiplanar, multisequence images of the lumbar spine is performed without and with IV contrast, util izing 5.5 mL intravenous Gadavist FINDINGS: Sagittal images of the lumbar spine show vertebral body heights to appear satisfactory. Sli ght scoliotic curvature. The intervertebral discs demonstrate normal heights and hydration. The conu s medullaris is normal in position and signal ending inferior L1 level. The bone marrow signal inten sity is within normal limits. No abnormal postcontrast enhancement is seen. Axial images show mild facet arthropathy L3-L4 and L4-L5 levels. There is no large disc herniation o r spinal canal stenosis. Paraspinal muscle bulk is maintained. IMPRESSION: Minimal degenerative changes. No large disc herniation. No abnormal enhancement noted.
--- NOTE | 2022-07-04 22:53 | P.HPIM ---
History of Present Illness H&P Date: 07/04/22 Mony Ji is a 31 yo F with PMH of kidney stone s/p recent lithitripsy who presented to the hospital with numbness in the inguinal region as well as urinary incontinence. She states that after her lithotripsy in [place] she began having numbness in the inguinal region as well as the she's been having urinary incontinence. She complains her symptoms have currently worsened and she is now noticing difficulty controlling her bowels as well. She had minimal diarrhea yesterday but that has resolved today. She denies of any focal weakness any falls. She denies of any upper extremity weakness or lower extremity weakness but does get numbness in her hands. Review of Systems All systems: negative Constitutional: Denies chills, Denies fever Eyes: denies blurred vision, denies pain Ears, nose, mouth and throat: Denies headache, Denies sore throat Cardiovascular: Denies chest pain, Denies shortness of breath Respiratory: Denies cough Gastrointestinal: Denies abdominal pain, Denies diarrhea, Denies nausea, Denies vomiting Genitourinary: Denies dysuria, Denies hematuria Musculoskeletal: Denies myalgias Integumentary: Denies pruritus, Denies rash Neurological: Reports numbness, Reports tingling, Denies weakness Psychiatric: Denies anxiety, Denies depression Endocrine: Denies fatigue, Denies weight change Past Medical History Past Medical History: Asthma Additional Past Medical History / Comment(s): frequent UTI History of Any Multi-Drug Resistant Organisms: None Reported Past Surgical History: Breast Surgery Additional Past Surgical History / Comment(s): breat reduction, lithotripsy Past Anesthesia/Blood Transfusion Reactions: No Reported Reaction Additional Past Anesthesia/Blood Transfusion Reaction / Comment(s): "my mom took her a while to wake up" Past Psychological History: Anxiety Smoking Status: Never smoker Past Alcohol Use History: Occasional Past Drug Use History: None Reported - Past Family History Mother Family Medical History: Cancer Additional Family Medical History / Comment(s): breast Medications and Allergies Home Medications Medication Instructions Recorded Confirmed Type Albuterol Inhaler [Ventolin Hfa 1 puff INHALATION RT-QID PRN 04/02/17 07/03/22 History Inhaler] Cetirizine HCl [Zyrtec] 10 mg PO DAILY 07/03/22 07/03/22 History Naproxen Sodium [Aleve] 220 mg PO DAILY PRN 07/03/22 07/03/22 History Allergies Allergy/AdvReac Type Severity Reaction Status Date / Time banana Allergy Anaphylaxis Verified 07/03/22 17:28 blueberry Allergy Anaphylaxis Verified 07/03/22 17:28 Iodinated Contrast Media Allergy Itching Verified 07/03/22 17:28 [Iodinated Contrast- Oral and IV Dye] kiwi Allergy Anaphylaxis Verified 07/03/22 17:28 latex Allergy Rash/Hives Verified 07/03/22 17:28 onion Allergy Anaphylaxis Verified 07/03/22 17:28 peanut Allergy Anaphylaxis Verified 07/03/22 17:28 raspberry Allergy Anaphylaxis Verified 07/03/22 17:28 strawberry Allergy Anaphylaxis Verified 07/03/22 17:28 tomato Allergy Anaphylaxis Verified 07/03/22 17:28 FRUIT Allergy Anaphylaxis Uncoded 07/03/22 17:28 Physical Exam Vitals: Vital Signs Temp Pulse Resp BP Pulse Ox 07/04/22 20:00 98 F 90 17 108/77 100 07/04/22 14:51 98.4 F 95 18 114/75 100 07/04/22 07:35 98.6 F 67 18 122/73 100 07/04/22 02:00 98.4 F 71 17 117/75 97 Intake and Output 07/04/22 07/04/22 07/04/22 06:59 14:59 22:59 Output Total 0 Balance 0 Output: Emesis 0 Other: Voiding Method Toilet # Voids 2 Gen: well developed, well nourished female in NAD HEENT: NC/AT, mmm Neck: supple, no JVD or thyromegaly CV: RRR, no murmur Lungs: Normal effort, clear throughout Abd: soft, nontender, non distended Neuro: alert and oriented x3, numbness evangelina LE Skin: warm and dry Results CBC & Chem 7: 07/04/22 11:04 07/04/22 11:04 Labs: Abnormal Lab Results - Last 24 Hours (Table) 07/04/22 Range/Units 11:04 Glucose 101 H (74-99) mg/dL Assessment and Plan Plan: Saddle anesthesia. Consult Neurology and Ortho, obtain MRI of lumbar spine Situational anxiety. Xanax prn
--- NOTE | 2022-07-05 07:30 | P.PN ---
Progress Note - Text Progress Note Date: 07/05/22 Patient is seen and examined today at bedside. The patient states that she is not having any pain. She is not having pain in her lower extremities or weakness in her lower extremity is. She says she still has numbness around her genitals. She says the numbness sensation is somewhat internal for her particularly during intercourse and she has different altered sensation during organisms. She is not having weakness in her lower extremity she does not have pain in her lower extremities. She says she does have some altered sensation during urination but she is still urinating normally. She is not having loss of control of her bowel or bladder function. Physical Exam Afebrile with stable vital signs Abdomen is soft nontender. Chest has good excursion deep and space expiration She has good sensation over her lateral thighs anterior thighs and toward her lower inner thighs but starts to change at her and her thighs. She has 5 out of 5 strength in her bilateral lower extremities with dorsal to plantar flexion and flexion and knee extension. She is able lift her legs up off the bed and ambulate easily. She is having a problem's in her neck she's not having any problems at her upper extremity. She has full strength active and passive range of motion in her neck and upper extremities. He has no upper motor neuron signs. She has no hyperreflexia. Extremities have not had neurologic motor change Calves and thighs were soft nontender without evidence of DVT. Imaging of her thoracic and lumbar spine and new MRI of her lumbar spine is reviewed. Again I do not see any evidence of compressive neurologic issue. She does not have a large disc herniations she has been some mild diffuse disc degeneration without any significant stenosis. There is no evidence of fracture there is no evidence of any compressive mass. Assessment/Plan Altered sensation around the vaginal area which does not seem to be compressive neuropathy from her spine No evidence of cauda equina syndrome I do not think the patient's symptoms stem from her lumbar spine. She is not having any evidence of compressive issue and we don't have any surgical plans. I would not plan any interventional pain management for her lumbar spine. From a spine standpoint is okay for her to increase her ambulation and activity and can follow-up on an as-needed basis. 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 She is also following up with neurology which I think is appropriate. We will continue to increase the patient's mobilization with therapy. From a spine standpoint I think that is okay for us to sign off and follow-up on an as-needed basis
[2022-07-05 08:48] VITALS: BP 99/72; PULSE 84; RESP 14; TEMP 98.4
--- NOTE | 2022-07-05 16:19 | P.PN ---
Subjective Progress Note Date: 07/05/22 The patient seen at bedside and she is accompanied by her significant other. She feels about the same. Denies of any new neurological issues. Objective - Vital Signs Vital signs: Vital Signs Temp 98.4 F 07/05/22 07:00 Pulse 84 07/05/22 07:00 Resp 14 07/05/22 07:00 BP 99/72 07/05/22 07:00 Pulse Ox 100 07/05/22 07:00 FiO2 Intake & Output 07/04/22 07/05/22 07/05/22 18:59 06:59 18:59 Output Total 0 Balance 0 Output: Emesis 0 Other: Voiding Method Toilet # Voids 2 - Exam GENERAL: The patient is lying in bed and is not in acute distress. NEUROLOGICAL: Higher mental function: The patient is awake, alert, oriented to self, place and time. Patient is following commands. No aphasia and no neglect. Cranial nerves: The pupils are round, equal and reactive to light and accommodation. Visual nye are full to confrontation throughout. Extraocular movement is intact no nystagmus is noted. Facial sensation is normal to touch throughout. The facial strength is normal throughout. Hearing is normal bilaterally to hand rub. Tongue is midline and moved [id number] without any difficulty. No dysarthria is noted. Shoulder shrug is normal bilaterally. Motor: The strength is 5 over 5 throughout. Normal tone and bulk. Cerebellum: Normal finger to nose bilaterally. Sensation: Sensation is normal to touch throughout. Reflexes (right/left): 2+ throughout. Plantars are downgoing bilaterally. Some of the workup consisted of: CBC with differential and Kamstra panel is unremarkable CT thoracic lumbar region is reported as no evidence of fracture. No evidence of for significant spinal canal or neuroforaminal stenosis given the limitation of the CT technique. Mild scoliosis change are present. Nitrogen regarding bilateral renal calculi Vitamin B12 is 452 Folate and serum is 13.60 TSH is 0.518 ALLISON is negative Lobe and A1c is 5.2 MRI lumbar spine with and without is reported as minimal degenerative changes at. No large disc herniation. No abnormal enhancement noted. I personally reviewed the MRI and agree with report. - Labs CBC & Chem 7: 07/04/22 11:04 07/04/22 11:04 Assessment and Plan Assessment: This is a 31-year-old woman who has history of kidney stones and had orthotripsy in 03/2022 who shortly after that noticed numbness in inguinal region. She also felt lack urinary urge and sexual dysfunction. Denies of focal weakness, back pain. Has old numbness of bilateral hands. Numbness in the inguinal region with lack of urinary urge and sexual dysfunction: Unknown exact cause. MRI Lumbar is negative. Rule out underlying demylinating disease and it was a coincidence during her kidney stone procedure. Numbness of hand that is old that is intermittent with symptoms above: Rule out Multiple Sclerosis. Does not appear GBS since has intact reflex. History of kidney stones History of asthma Plan: MRI of the brain and the cervical spine is pending and the was notified to be completed to the Thursday since there is too many MRIs that are backed up. Patient does not want to wait until Thursday and wants to get as an outpatient. I recommend a multiple sclerosis workup of consideration of lumbar puncture with CSF study Recommend the patient to follow-up with a neurologist as an outpatient and recommended EMG with nerve conduction study of the uppers and lowers. Orthopedic Surgery team is on board We'll defer the rest of the medical management to primary team She does not want to await any further longer for any further workup. She would like the workup as an outpatient. She was notified to surya up with a neurologist as an outpatient within 1-2 weeks. Plan discussed with the patient and her significant other was at bedside Time with Patient: Less than 30
--- NOTE | 2022-07-11 22:14 | P.DS ---
Providers Date of admission: 07/03/22 17:09 Expected date of discharge: 07/05/22 Attending physician: Jair Art MD Consults: 07/03/22 17:08 Consult Physician Urgent Consulting Provider: Ramos Wang Consult Reason/Comments: Saddle anesthesia Do you want consulting provider notified?: Yes 07/04/22 09:16 Consult Physician Routine Consulting Provider: Jigar Davis Consult Reason/Comments: Saddle anesthesia, lower extremity numbness and tingling, facial numbness Do you want consulting provider notified?: Yes Primary care physician: Shereen Mercy Hospital Course: 31-year-old woman who has history of kidney stones and had orthotripsy in 03/2022 who shortly after that noticed numbness in inguinal region. She also felt lack urinary urge and sexual dysfunction. Denies of focal weakness, back pain. Has old numbness of bilateral hands. Numbness in the inguinal region with lack of urinary urge and sexual dysfunction /Saddle Anesthesia: Rule out any Lumbar dysfunction. Numbness of hand that is old that is intermittent with symptoms above: Rule out Multiple Sclerosis. Does not appear GBS since has intact reflex. History of kidney stones History of asthma Plan: MRI of lumbar without is ordered by the orthopedic surgery team and I change it to within without. I also ordered MRI the brain and the cervical spine with and without Ordered TSH, vitamin B-12, folate. Ordered hemoglobin A1c as well as ALLISON. Recommend the patient to follow-up with a neurologist as an outpatient and recommended EMG with nerve conduction study of the uppers and lowers. Orthopedic Surgery team is on board Patient Condition at Discharge: Good Plan - Discharge Summary New Discharge Prescriptions: Continue Albuterol Inhaler [Ventolin Hfa Inhaler] 1 puff INHALATION RT-QID PRN PRN Reason: Shortness Of Breath Naproxen Sodium [Aleve] 220 mg PO DAILY PRN PRN Reason: Menstrual Cramps Cetirizine HCl [Zyrtec] 10 mg PO DAILY Discharge Medication List Albuterol Inhaler [Ventolin Hfa Inhaler] 1 puff INHALATION RT-QID PRN 04/02/17 [History] Cetirizine HCl [Zyrtec] 10 mg PO DAILY 07/03/22 [History] Naproxen Sodium [Aleve] 220 mg PO DAILY PRN 05/25/23 [History] Follow up Appointment(s)/Referral(s): Daija Cartagena MD [Medical Doctor] - 1 Week Shereen Pace DO [Primary Care Provider] - 1-2 days Activity/Diet/Wound Care/Special Instructions: May ambulate as tolerated. May increase activity as tolerated from a spine standpoint Discharge Disposition: HOME SELF-CARE
== END 2022-07-05 13:04 | disposition home or self-care (01) ==
LOC: EC 14:55 → 6NMEDSUR 17:09
PROVIDERS: ADMIT Family Medicine; ATTEND Family Medicine
DX: T88.59XA Other complications of anesthesia, initial encounter (principal); R20.0 Anesthesia of skin; M54.10 Radiculopathy, site unspecified; F41.9 Anxiety disorder, unspecified; J45.909 Unspecified asthma, uncomplicated; R32 Unspecified urinary incontinence; Z91.041 Radiographic dye allergy status; Z91.040 Latex allergy status; Z91.018 Allergy to other foods; Z98.890 Other specified postprocedural states; Z87.442 Personal history of urinary calculi; Z87.440 Personal history of urinary (tract) infections; Z80.9 Family history of malignant neoplasm, unspecified; Z79.1 Long term (current) use of non-steroidal anti-inflammatories (NSAID); Z79.899 Other long term (current) drug therapy; M41.9 Scoliosis, unspecified; R29.2 Abnormal reflex
CPT/HCPCS: 99284; 80053; 84443; 82607; 82746; 85025; 86038; 83036; 72128; 72131; 72158; G0378 ×3; A9585

== ENCOUNTER → 2022-08-02 | Outpatient (CLI) | payer OTHER ==
--- NOTE | 2022-08-02 08:51 | MR ---
PRE AND POSTCONTRAST ENHANCED MRI OF THE BRAIN: CLINICAL HISTORY: Numbness in face, head, lower pelvic (vaginal), back and legs. CONTRAST: Gadavist 6ml Multiplanar and multispin-echo imaging of the brain was performed both before and after the administr ation of contrast. The ventricles, basal cisterns and sulci overlying the cerebral convexities are within normal limits. There is no evidence for midline shift or mass effect. Acute intracranial hemorrhage or extra-axial collection is not evident. There are no abnormal areas of increased or decreased signal intensity within the brain parenchyma. Following contrast administration, there is no evidence for pathologic enhancement or enhancing mass. The paranasal sinuses and mastoid air cells are well-aerated. IMPRESSION: Unremarkable pre and postcontrast enhanced MRI of the brain.
== END | disposition home or self-care (01) ==
LOC: RADMRIMAIN 07:10
PROVIDERS: ATTEND Family Medicine
DX: R20.0 Anesthesia of skin (principal)
CPT/HCPCS: 70553; A9585

== ENCOUNTER 2024-05-17 11:58 | Emergency (ER) | payer OTHER ==
[2024-05-17 12:17] VITALS: RESP 16
--- NOTE | 2024-05-17 12:34 | ED ---
Abdominal Pain HPI - General Chief Complaint: Abdominal Pain Stated Complaint: abd pain,back pain Time Seen by Provider: 05/17/24 12:30 Source: patient, RN notes reviewed Mode of arrival: ambulatory Limitations: no limitations - History of Present Illness Initial Comments: 33-year-old female presenting for right lower quadrant abdominal pain x 3 days. States pain is intermittent radiates to the back. Reports she has been following with PCP for abdominal pain for several weeks on both sides of the abdomen. She was diagnosed with constipation and has been taking MiraLAX. She followed up with her PCP Shereen Pace's office this morning where they told her she had right lower quadrant tenderness and sent her to the ER for a CT scan to rule out appendicitis. Patient denies nausea, vomiting, urinary symptoms, vaginal discharge, vaginal bleeding. Last menstrual period was 3 weeks ago. Denies chance of . States she has a history of kidney stones however states this feels different. - Related Data Home Medications Medication Instructions Recorded Confirmed Albuterol Inhaler [Ventolin Hfa 1 puff INHALATION RT-QID PRN 04/02/17 07/03/22 Inhaler] Cetirizine HCl [Zyrtec] 10 mg PO DAILY 07/03/22 07/03/22 Naproxen Sodium [Aleve] 220 mg PO DAILY PRN 07/03/22 07/03/22 Allergies Allergy/AdvReac Type Severity Reaction Status Date / Time banana Allergy Anaphylaxis Verified 05/17/24 12:17 blueberry Allergy Anaphylaxis Verified 05/17/24 12:17 Iodinated Contrast Media Allergy Itching Verified 05/17/24 12:17 [Iodinated Contrast- Oral and IV Dye] kiwi Allergy Anaphylaxis Verified 05/17/24 12:17 latex Allergy Rash/Hives Verified 05/17/24 12:17 onion Allergy Anaphylaxis Verified 05/17/24 12:17 peanut Allergy Anaphylaxis Verified 05/17/24 12:17 raspberry Allergy Anaphylaxis Verified 05/17/24 12:17 strawberry Allergy Anaphylaxis Verified 05/17/24 12:17 tomato Allergy Anaphylaxis Verified 05/17/24 12:17 FRUIT Allergy Anaphylaxis Uncoded 05/17/24 12:17 Review of Systems ROS Statement: Those systems with pertinent positive or pertinent negative responses have been documented in the HPI. ROS Other: All systems not noted in ROS Statement are negative. Past Medical History Past Medical History: Asthma Additional Past Medical History / Comment(s): frequent UTI History of Any Multi-Drug Resistant Organisms: None Reported Past Surgical History: Breast Surgery Additional Past Surgical History / Comment(s): breat reduction, lithotripsy Past Anesthesia/Blood Transfusion Reactions: No Reported Reaction Additional Past Anesthesia/Blood Transfusion Reaction / Comment(s): "my mom took her a while to wake up" Past Psychological History: Anxiety Smoking Status: Never smoker Past Alcohol Use History: Occasional Past Drug Use History: None Reported - Past Family History Mother Family Medical History: Cancer Additional Family Medical History / Comment(s): breast General Exam Limitations: no limitations General appearance: alert, in no apparent distress Head exam: Present: atraumatic, normocephalic, normal inspection GI/Abdominal exam: Present: soft, normal bowel sounds. Absent: distended, tenderness, guarding, rebound, rigid Back exam: Absent: CVA tenderness (R), CVA tenderness (L) Neurological exam: Present: alert, oriented X3 Psychiatric exam: Present: normal affect, normal mood Skin exam: Present: warm, dry, intact, normal color. Absent: rash Course Vital Signs 05/17/24 12:14 Temperature 98.3 F Pulse Rate 64 Respiratory 16 Rate Blood Pressure 109/69 O2 Sat by Pulse 100 Oximetry Medical Decision Making - Medical Decision Making Was pt. sent in by a medical professional or institution (JUANA Yanez, PLANNING INTERN, urgent care, hospital, or detention...) When possible be specific @ -Sent by PCP for CT scan to rule out appendicitis Did you speak to anyone other than the patient for history (EMS, parent, family, police, friend...)? What history was obtained from this source @ -No Did you review nursing and triage notes (agree or disagree)? Why? @ -I reviewed and agree with nursing and triage notes Were old charts reviewed (outside hosp., previous admission, EMS record, old EKG, old radiological studies, urgent care reports/EKG's, detention records)? Report findings @ -No old charts were reviewed Differential Diagnosis (chest pain, altered mental status, abdominal pain women, abdominal pain men, vaginal bleeding, weakness, fever, dyspnea, syncope, headache, dizziness, GI bleed, back pain, seizure, CVA, palpatations, mental health, musculoskeletal)? @ -Differential Abdominal Pain Women: Appendicitis, Cholecystitis, diverticulosis, ischemic bowel, pancreatitis, hepatitis, UTI, gastroenteritis, AAA, incarcerated hernia, bowel obstruction, constipation, inflammatory bowel, hepatitis, peptic ulcer disease, splenic infarction, perforated viscus, vulvitis, ovarian torsion, PID, kidney stone, placenta abruption, this is not meant to be an all-inclusive list EKG interpreted by me (3pts min.). @ -None X-rays interpreted by me (1pt min.). @ -None done CT interpreted by me (1pt min.). @ -CT abdomen pelvis with contrast reveals no acute process U/S interpreted by me (1pt. min.). @ -None done What testing was considered but not performed or refused? (CT, X-rays, U/S, labs)? Why? @ -None What meds were considered but not given or refused? Why? @ -None Did you discuss the management of the patient with other professionals (professionals i.e. , PA, PLANNING INTERN, lab, RT, psych nurse, mental health social worker, greens keeper, teacher, postal sorting officer, assistant case manager)? Give summary @ -No Was smoking cessation discussed for >3mins.? @ -No Was critical care preformed (if so, how long)? @ -No Were there social determinants of health that impacted care today? How? (Homelessness, low income, unemployed, alcoholism, drug addiction, transpor tation, low edu. Level, literacy, decrease access to med. care, assisted, rehab)? @ -No Was there de-escalation of care discussed even if they declined (Discuss DNR or withdrawal of care, Hospice)? DNR status @ -No What co-morbidities impacted this encounter? (DM, HTN, Smoking, COPD, CAD, Cancer, CVA, ARF, Chemo, Hep., AIDS, mental health diagnosis, sleep apnea, morbid obesity)? @ -None Was patient admitted / discharged? Hospital course, mention meds given and route, prescriptions, significant lab abnormalities, going to OR and other pertinent info. @ -Discharge. 33-year-old female presenting for right lower quadrant abdominal pain x 3 days. Vital signs within acceptable limits. Abdomen soft and nonsurgical. Patient is provided with IV fluids and analgesics. Lab work unremarkable. White blood cell count 4, lactic 1.6. Urinalysis remarkable for 2+ ketones, urine negative. CT abdomen pelvis with contrast reveals no acute process. Discussed results with patient. Upon reevaluation, patient reports she is currently asymptomatic. I do not identify an emergent etiology causing symptoms today. Patient can be safely discharged with strict return precautions and close PCP follow-up. Patient is agreeable to this plan. Case was discussed with my ED attending Dr. Egan. Undiagnosed new problem with uncertain prognosis? @ -No Drug Therapy requiring intensive monitoring for toxicity (Heparin, Nitro, Insulin, Cardizem)? @ -No Were any procedures done? @ -No Diagnosis/symptom? @ -Abdominal pain Acute, or Chronic, or Acute on Chronic? @ -Acute Uncomplicated (without systemic symptoms) or Complicated (systemic symptoms)? @ -Uncomplicated Side effects of treatment? @ -No Exacerbation, Progression, or Severe Exacerbation? @ -No Poses a threat to life or bodily function? How? (Chest pain, USA, DC, pneumonia, PE, COPD, DKA, ARF, appy, cholecystitis, CVA, Diverticulitis, Homicidal, Suicidal, threat to staff... and all critical care pts) @ -No - Lab Data Result diagrams: 05/17/24 13:16 05/17/24 13:45 Lab Results 05/17/24 05/17/24 05/17/24 Range/Units 13:16 13:16 13:16 WBC 4.44 L (4.50-10.00) 10*3/uL RBC 4.74 (4.10-5.20) 10*6/uL Hgb 14.2 (12.0-15.0) g/dL Hct 41.9 (37.2-46.3) % MCV 88.4 (80.0-97.0) fL MCH 30.0 (27.0-32.0) pg MCHC 33.9 (32.0-37.0) g/dL Plt Count 224 (140-440) 10*3/uL MPV 12.1 (9.5-12.2) fL Immature Gran % (Auto) 0.2 % Neutrophils % 48.0 % Lymphocytes % 35.8 % Monocytes % 14.6 % Eosinophils % 0.5 % Basophils % 0.9 % Immature Gran # 0.01 (0.00-0.04) 10*3/uL Neutrophils # 2.13 (1.80-7.70) 10*3/uL Lymphocytes # 1.59 (0.90-5.00) 10*3/uL Monocytes # 0.65 (0.20-1.00) 10*3/uL Eosinophils # 0.02 L (0.04-0.35) 10*3/uL Basophils # 0.04 (0.00-0.10) 10*3/uL Sodium (137-145) mmol/L Potassium (3.5-5.1) mmol/L Chloride (98-107) mmol/L Carbon Dioxide (22-30) mmol/L Anion Gap mmol/L BUN (7-17) mg/dL Creatinine (0.52-1.04) mg/dL Est GFR (CKD-EPI)AfAm (>60 ml/min/1.73 sqM) Est GFR (CKD-EPI)NonAf (>60 ml/min/1.73 sqM) Glucose (74-99) mg/dL Plasma Lactic Acid Hola 1.6 (0.7-2.0) mmol/L Calcium (8.4-10.2) mg/dL Total Bilirubin (0.2-1.3) mg/dL AST (14-36) U/L ALT (4-34) U/L Alkaline Phosphatase (38-126) U/L Total Protein (6.3-8.2) g/dL Albumin (3.5-5.0) g/dL Lipase (23-300) U/L Urine Color Urine Appearance (Clear) Urine pH (5.0-8.0) Ur Specific [place] (1.001-1.035) Urine Protein (Negative) Urine Glucose (UA) (Negative) Urine Ketones (Negative) Urine Blood (Negative) Urine Nitrite (Negative) Urine Bilirubin (Negative) Urine Urobilinogen (<2.0) mg/dL Ur Leukocyte Esterase (Negative) Urine HCG, Qual Not Detected (Not Detectd) 05/17/24 05/17/24 Range/Units 13:16 13:45 WBC (4.50-10.00) 10*3/uL RBC (4.10-5.20) 10*6/uL Hgb (12.0-15.0) g/dL Hct (37.2-46.3) % MCV (80.0-97.0) fL MCH (27.0-32.0) pg MCHC (32.0-37.0) g/dL Plt Count (140-440) 10*3/uL MPV (9.5-12.2) fL Immature Gran % (Auto) % Neutrophils % % Lymphocytes % % Monocytes % % Eosinophils % % Basophils % % Immature Gran # (0.00-0.04) 10*3/uL Neutrophils # (1.80-7.70) 10*3/uL Lymphocytes # (0.90-5.00) 10*3/uL Monocytes # (0.20-1.00) 10*3/uL Eosinophils # (0.04-0.35) 10*3/uL Basophils # (0.00-0.10) 10*3/uL Sodium 137 (137-145) mmol/L Potassium 4.1 (3.5-5.1) mmol/L Chloride 105 (98-107) mmol/L Carbon Dioxide 22 (22-30) mmol/L Anion Gap 10 mmol/L BUN 10 (7-17) mg/dL Creatinine 0.69 (0.52-1.04) mg/dL Est GFR (CKD-EPI)AfAm >90 (>60 ml/min/1.73 sqM) Est GFR (CKD-EPI)NonAf >90 (>60 ml/min/1.73 sqM) Glucose 81 (74-99) mg/dL Plasma Lactic Acid Hol[place] (0.7-2.0) mmol/L Calcium 8.9 (8.4-10.2) mg/dL Total Bilirubin 0.5 (0.2-1.3) mg/dL AST 21 (14-36) U/L ALT 13 (4-34) U/L Alkaline Phosphatase 61 (38-126) U/L Total Protein 7.2 (6.3-8.2) g/dL Albumin 4.2 (3.5-5.0) g/dL Lipase 138 (23-300) U/L Urine Color Colorless Urine Appearance Clear (Clear) Urine pH 5.0 (5.0-8.0) Ur Specific [place] 1.018 (1.001-1.035) Urine Protein Negative (Negative) Urine Glucose (UA) Negative (Negative) Urine Ketones 2+ H (Negative) Urine Blood Negative (Negative) Urine Nitrite Negative (Negative) Urine Bilirubin Negative (Negative) Urine Urobilinogen <2.0 (<2.0) mg/dL Ur Leukocyte Esterase Negative (Negative) Urine HCG, Qual (Not Detectd) Disposition Clinical Impression: Abdominal pain Disposition: HOME SELF-CARE Condition: Stable Instructions (If sedation given, give patient instructions): Abdominal Pain (ED) Additional Instructions: Please return to the Emergency Department if symptoms worsen or any other concerns. Is patient prescribed a controlled substance at d/c from ED?: No Referrals: Shereen Pace DO [Primary Care Provider] - 1-2 days Time of Disposition: 15:20
[2024-05-17] MEDS: SODIUM CHLORIDE 0.9% 1,000 ML IV STA (13:03)
[2024-05-17] MEDS: methylPREDNISolone SOD SUCCI 125 MG/2 ML VIAL IV STA (13:04)
[2024-05-17] MEDS: FAMOTIDINE 20 MG/2 ML VIAL IV STA (13:05)
[2024-05-17] MEDS: diphenhydrAMINE 50 MG/ML 1 ML VIAL IVP STA (13:07)
[2024-05-17] MEDS: KETOROLAC 15 MG/ML 1 ML VIAL IVP STA (13:13)
[2024-05-17 13:31] LABS: Basophils # (A) 0.04 10*3/uL (0.00-0.10); Basophils % (A) 0.9 %; Eosinophils # (A) 0.02 10*3/uL (0.04-0.35); Eosinophils % (A) 0.5 %; HCT 41.9 % (37.2-46.3); HGB 14.2 g/dL (12.0-15.0); Lymphocytes # (A) 1.59 10*3/uL (0.90-5.00); Lymphocytes % (A) 35.8 %; MCHC 33.9 g/dL (32.0-37.0); MCV 88.4 fL (80.0-97.0); Mean Platelet Volume 12.1 fL (9.5-12.2); Monocytes # (A) 0.65 10*3/uL (0.20-1.00); Monocytes % (A) 14.6 %; Neutrophils # (A) 2.13 10*3/uL (1.80-7.70); Platelet Count 224 10*3/uL (140-440); RBC 4.74 10*6/uL (4.10-5.20); RDW 12.7 % (11.5-14.5); WBC 4.44 10*3/uL (4.50-10.00)
[2024-05-17 13:34] LABS: Appearance,Urine Clear (Clear); Bilirubin,Urine Negative (Negative); Blood,Urine Negative (Negative); Color,Urine Colorless; Glucose,Urine (UA) Negative (Negative); Ketones,Urine 2+ (Negative); Leukocyte Esterase,Urine Negative (Negative); Nitrite,Urine Negative (Negative); Protein,Urine Negative (Negative); Specific Gravity,Urine 1.018 (1.001-1.035); Urobilinogen,Urine <2.0 mg/dL (<2.0)
[2024-05-17 14:06] LABS: ALT 13 U/L (4-34); AST 21 U/L (14-36); African American GFR (CKD) >90 (>60 ml/min/1.73 sqM); Albumin 4.2 g/dL (3.5-5.0); Alkaline Phosphatase 61 U/L (38-126); Anion Gap 10 mmol/L; Blood Urea Nitrogen 10 mg/dL (7-17); Calcium 8.9 mg/dL (8.4-10.2); Carbon Dioxide 22 mmol/L (22-30); Chloride 105 mmol/L (98-107); Glucose 81 mg/dL (74-99); Lipase 138 U/L (23-300); Non-African American GFR(CKD) >90 (>60 ml/min/1.73 sqM); Potassium 4.1 mmol/L (3.5-5.1); Sodium 137 mmol/L (137-145); Total Bilirubin 0.5 mg/dL (0.2-1.3); Total Protein 7.2 g/dL (6.3-8.2)
--- NOTE | 2024-05-17 14:32 | CT ---
EXAMINATION TYPE: CT abdomen pelvis w con DATE OF EXAM: 05/17/2024 COMPARISON: 03/30/2022 CLINICAL INDICATION: Female, 33 years old with history of RLQ abd pain; PHH, RLQ pain TECHNIQUE: Performed without Oral Contrast and with IV Contrast, patient injected with 100 mL of Isovue 300. CT DLP: [address] CTDI: mGy Automated exposure control for dose reduction was used. FINDINGS: The lung bases are clear. The gallbladder is normal without distention, wall thickening, pericholecystic fluid or gallstones. T here is no biliary ductal dilatation. There is no focal mass or organomegaly involving the liver, pancreas, spleen or adrenal glands. There are multiple small stable hypodensities within the liver too small to characterize with certainty bu t most likely representing simple hepatic cysts. There are multiple bilateral nonobstructing renal calcifications. On the right there is a 5.2 mm calc ification 4.9 mm calcification. There are additional small punctate calcifications. On the left, ther e is a 5.6 mm calcification. The caliber the abdominal aorta is normal is no retroperitoneal adenopathy or hemorrhage. The bowel loops are normal in caliber and there is no evidence of dilatation or obstruction. No infla mmatory changes are identified in the bowel wall or mesentery. The appendix is visualized and appears normal. There is no free intraperitoneal air or fluid. No pelvic mass, free fluid, abscess or adenopathy. The osseous structures and soft tissues are intact. IMPRESSION: 1. No acute changes within the abdomen or pelvis. 2. Nonobstructing bilateral renal calcifications as described above. [facility], Workstation: JOSE ANGEL, 05/17/2024 2:30 PM
[2024-05-17 15:31] VITALS: BP 103/65; PULSE 68; TEMP 98.2
== END 2024-05-17 15:31 | disposition home or self-care (01) ==
LOC: EC 11:58
DX: R10.31 Right lower quadrant pain (principal); K59.00 Constipation, unspecified; Z91.010 Allergy to peanuts; Z91.018 Allergy to other foods; Z91.040 Latex allergy status; Z91.041 Radiographic dye allergy status
CPT/HCPCS: 36415; 80053; 83605; 83690; 85025; 81003; 81025; 74177; 99284; 96374; 96375; 96361; J1200; J3490; Q9967; J2919